=== PATIENT | female | born 1990 | race African-American/Black ===

== ENCOUNTER 2018-04-08 16:03 | Emergency (ER) | payer OTHER ==
[2018-04-08] MEDS ORDERED: Sodium Chloride 0.9% 2.5 ML Syringe FLUSH PRN (16:09)
[2018-04-08] MEDS ORDERED: Aspirin 81 MG Tab.Chew PO ONE (16:09)
[2018-04-08] MEDS ORDERED: Sodium Chloride 0.9% 10 ML Syringe FLUSH PRN (16:09)
--- NOTE | 2018-04-08 16:23 | EDM.PDOC ---
ED HPI GENERAL MEDICAL PROBLEM - General Chief Complaint: Chest Pain Stated Complaint: CHEST PAIN Time Seen by Provider: 04/08/18 16:19 Source of Information: Reports: Patient History Limitations: Reports: No Limitations - History of Present Illness INITIAL COMMENTS - FREE TEXT/NARRATIVE: HISTORY AND PHYSICAL: History of present illness: Patient is a 27 year old female here with complaint of chest pain. She states the chest pain started this morning and she came to the ED this afternoon because it is not getting better. The pain comes and goes and she rates it as a 6/10 when it occurs. She states certain movements make it worse. She denies any chest pain at this moment. She denies any associated shortness of breath, diaphoresis, nausea, palpitations, vomiting, diarrhea, abdominal pain, cough, fevers, chills. She is otherwise healthy and denies any significant past medical history. Denies any smoking, or elicit drug use. She states her mother has history of hypertension and congestive heart failure and father has history of hypertension and has had cardiac stents. LMP 03/30/18. Review of systems: As per history of present illness and below otherwise all systems reviewed and negative. Past medical history: As per history of present illness and as reviewed below otherwise noncontributory. Surgical history: As per history of present illness and as reviewed below otherwise noncontributory. Social history: No reported history of drug or alcohol abuse. Family history: As per history of present illness and as reviewed below otherwise noncontributory. Physical exam: General: Patient sitting comfortably in no acute distress and nontoxic appearing HEENT: Atraumatic, normocephalic, pupils reactive, negative for conjunctival pallor or scleral icterus, mucous membranes moist, throat clear, neck supple, nontender, trachea midline. No meningeal signs. Lungs: Clear to auscultation, breath sounds equal bilaterally, chest nontender. Heart: S1S2, regular, negative for clicks, rubs, or overt murmur. Abdomen: Soft, nondistended, nontender. Negative for masses or hepatosplenomegaly. Negative for costovertebral tenderness. Pelvis: Stable nontender. Genitourinary: Deferred. Rectal: Deferred. Extremities: Atraumatic, negative for cords or calf pain. Neurovascular unremarkable. Neuro: Awake, alert, oriented. Cranial nerves II through XII unremarkable. Cerebellum unremarkable. Motor and sensory unremarkable throughout. Exam nonfocal. Notes: Diagnostics: CBC, CMP, troponin, EKG, chest x-ray Therapeutics: Aspirin 324mg chewed Prescriptions: Impression: Chest pain, costochondritis Plan: 1. Motrin or tylenol as needed 2. Follow up with primary care provider 3. Return to ED as needed as discussed Definitive disposition and diagnosis as appropriate pending reevaluation and review of above. chest pain Pain Score (Numeric/FACES): 6 - Related Data Allergies Allergy/AdvReac Type Severity Reaction Status Date / Time No Known Allergies Allergy Verified 04/08/18 16:47 Home Meds: Home Meds . [No Known Home Meds] 04/08/18 [History] Multivitamin [One-Daily Multi-Vitamin] 1 each PO DAILY 04/08/18 [History] ED ROS GENERAL - Review of Systems Review Of Systems: ROS reveals no pertinent complaints other than HPI. ED EXAM, GENERAL - Physical Exam Exam: See Below (See dictation) Course - Vital Signs Last Recorded V/S: Last Vital Signs Temp 99.0 F 04/08/18 16:05 Pulse 71 04/08/18 16:05 Resp 18 04/08/18 16:05 BP 155/91 H 04/08/18 16:05 Pulse Ox 100 04/08/18 16:05 - Orders/Labs/Meds Orders: Active Orders 24 hr Category Date Time Status EKG 12 Lead [EKG Documentation Completion] [RC] STAT Care 04/08/18 16:50 Active Sodium Chloride 0.9% [Saline Flush] Med 04/08/18 16:09 Active 10 ml FLUSH ASDIRECTED PRN Sodium Chloride 0.9% [Saline Flush] Med 04/08/18 16:09 Active 2.5 ml FLUSH ASDIRECTED PRN Saline Lock Insert [OM.PC] Stat Oth 04/08/18 16:09 Ordered Medication Orders Sodium Chloride (Saline Flush) 10 ml FLUSH ASDIRECTED PRN PRN Reason: Keep Vein Open Sodium Chloride (Saline Flush) 2.5 ml FLUSH ASDIRECTED PRN PRN Reason: Keep Vein Open Labs: Laboratory Tests 04/08/18 04/08/18 Range/Units 16:13 16:13 WBC 6.23 (4.0-11.0) K/uL RBC 4.65 (4.30-5.90) M/uL Hgb 13.6 (12.0-16.0) g/dL Hct 38.9 (36.0-46.0) % MCV 83.7 (80.0-98.0) fL MCH 29.2 (27.0-32.0) pg MCHC 35.0 (31.0-37.0) g/dL RDW Std Deviation 40.2 (28.0-62.0) fl RDW Coeff of Lety 13 (11.0-15.0) % Plt Count 257 (150-400) K/uL MPV 10.90 (7.40-12.00) fL Neut % (Auto) 42.6 L (48.0-80.0) % Lymph % (Auto) 48.3 H (16.0-40.0) % [place] % (Auto) 7.7 (0.0-15.0) % Eos % (Auto) 0.8 (0.0-7.0) % Baso % (Auto) 0.6 (0.0-1.5) % Neut # (Auto) 2.7 (1.4-5.7) K/uL Lymph # (Auto) 3.0 H (0.6-2.4) K/uL [place] # (Auto) 0.5 (0.0-0.8) K/uL Eos # (Auto) 0.1 (0.0-0.7) K/uL Baso # (Auto) 0.0 (0.0-0.1) K/uL Nucleated RBC % 0.0 /100WBC Nucleated RBCs # 0 K/uL Sodium 140 (136-145) mmol/L Potassium 3.8 (3.5-5.1) mmol/L Chloride 103 (98-107) mmol/L Carbon Dioxide 27.4 (21.0-32.0) mmol/L BUN 13 (7.0-18.0) mg/dL Creatinine 0.9 (0.6-1.0) mg/dL Est Cr Clr Drug Dosing 71.48 mL/min Estimated GFR (MDRD) > 60.0 ml/min Glucose 87 (74-106) mg/dL Calcium 9.9 (8.5-10.1) mg/dL Total Bilirubin 0.6 (0.2-1.0) mg/dL AST 16 (15-37) IU/L ALT 16 (14-63) IU/L Alkaline Phosphatase 85 (46-116) U/L Troponin I < 0.050 (0.000-0.056) ng/mL Total Protein 8.6 H (6.4-8.2) g/dL Albumin 3.9 (3.4-5.0) g/dL Globulin 4.7 H (2.6-4.0) g/dL Albumin/Globulin Ratio 0.8 L (0.9-1.6) Meds: Medications Generic Name Dose Route Start Last Admin Trade Name Freq PRN Reason Stop Dose Admin Sodium Chloride 10 ml 04/08/18 16:09 Saline Flush FLUSH ASDIRECTED PRN Keep Vein Open Sodium Chloride 2.5 ml 04/08/18 16:09 Saline Flush FLUSH ASDIRECTED PRN Keep Vein Open Discontinued Medications Generic Name Dose Route Start Last Admin Trade Name Freq PRN Reason Stop Dose Admin Aspirin 324 mg 04/08/18 16:09 04/08/18 16:46 Aspirin PO 04/08/18 16:10 324 mg ONETIME ONE Administration Departure - Departure Time of Disposition: 17:10 Disposition: Home, Self-Care 01 Condition: Good Clinical Impression: Chest pain, Costochondritis Forms: ED Department Discharge Additional Instructions: The following information is given to patients seen in the emergency department who are being discharged to home. This information is to outline your options for follow-up care. We provide all patients seen in our emergency department with a follow-up referral. The need for follow-up, as well as the timing and circumstances, are variable depending upon the specifics of your emergency department visit. If you don't have a primary care physician on staff, we will provide you with a referral. We always advise you to contact your personal physician following an emergency department visit to inform them of the circumstance of the visit and for follow-up with them and/or the need for any referrals to a consulting specialist. The emergency department will also refer you to a specialist when appropriate. This referral assures that you have the opportunity for follow-up care with a specialist. All of these measure are taken in an effort to provide you with optimal care, which includes your follow-up. Under all circumstances we always encourage you to contact your private physician who remains a resource for coordinating your care. When calling for follow-up care, please make the office aware that this follow-up is from your recent emergency room visit. If for any reason you are refused follow-up, please contact the [facility] Emergency Department at and asked to speak to the emergency department charge nurse. 1. Motrin or tylenol as needed 2. Follow up with primary care provider 3. Return to ED as needed as discussed - My Orders Last 24 Hours: My Active Orders 04/08/18 16:09 Sodium Chloride 0.9% [Saline Flush] 10 ml FLUSH ASDIRECTED PRN Sodium Chloride 0.9% [Saline Flush] 2.5 ml FLUSH ASDIRECTED PRN Saline Lock Insert [OM.PC] Stat 04/08/18 16:50 EKG 12 Lead [EKG Documentation Completion] [RC] STAT - Assessment/Plan Last 24 Hours: My Active Orders 04/08/18 16:09 Sodium Chloride 0.9% [Saline Flush] 10 ml FLUSH ASDIRECTED PRN Sodium Chloride 0.9% [Saline Flush] 2.5 ml FLUSH ASDIRECTED PRN Saline Lock Insert [OM.PC] Stat 04/08/18 16:50 EKG 12 Lead [EKG Documentation Completion] [RC] STAT
[2018-04-08 16:51] LABS: CHLORIDE,CL 103 mmol/L (98-107); SODIUM,NA 140 mmol/L (136-145)
--- NOTE | 2018-04-08 16:58 | CR ---
CHEST 1 VIEW AP INDICATION: Chest pain. IMPRESSION: Normal heart size and vascular pattern. Lungs are clear. No pneumothorax or pleural abnormality. ECG Monitor leads projected over the patient. Dictated by Carlito Martínez MD @ Apr 08 2018 4:56PM Signed by Dr. Carlito Martínez @ Apr 08 2018 4:56PM
== END 2018-04-08 17:35 | disposition home or self-care (01) ==
LOC: MW.ED 16:03
DX: M94.0 Chondrocostal junction syndrome [Tietze] (principal); R07.9 Chest pain, unspecified
CPT/HCPCS: 71045; 80053; 84484; 85025; 93005; 99285; A9270

== ENCOUNTER 2019-01-07 09:24 | Emergency (ER) | payer OTHER ==
[2019-01-07] MEDS ORDERED: Sodium Chloride 0.9% 2.5 ML Syringe FLUSH PRN (09:41)
[2019-01-07] MEDS ORDERED: Ondansetron 4 MG/2 ML SDV IVPUSH ONE (09:41)
[2019-01-07] MEDS ORDERED: Sodium Chloride 0.9% 1,000 ML IV ONE (09:41)
[2019-01-07] MEDS ORDERED: Sodium Chloride 0.9% 10 ML Syringe FLUSH PRN (09:41)
--- NOTE | 2019-01-07 09:51 | EDM.PDOC ---
ED HPI GENERAL MEDICAL PROBLEM - General Chief Complaint: Gastrointestinal Problem Stated Complaint: VOMITING Time Seen by Provider: 01/07/19 09:38 Source of Information: Reports: Patient History Limitations: Reports: No Limitations - History of Present Illness INITIAL COMMENTS - FREE TEXT/NARRATIVE: History of present illness: []She started having vomiting and diarrhea at 3 AM this morning. She is unaware of any food exposures denies any fevers or chills states she's been having brown watery diarrhea almost every hour copious amounts. She has vomited just 2- 3 times nonbloody. She has mild abdominal pain from vomiting states he feels like she's done a lot of sit-ups. Review of systems: As per history of present illness and below otherwise all systems reviewed and negative. Past medical history: As per history of present illness and as reviewed below otherwise noncontributory. Surgical history: As per history of present illness and as reviewed below otherwise noncontributory. Social history: No reported history of drug or alcohol abuse. Family history: As per history of present illness and as reviewed below otherwise noncontributory. Physical exam: General: Well developed, well nourished in NAD HEENT: Atraumatic, normocephalic, pupils reactive, negative for conjunctival pallor or scleral icterus, mucous membranes moist, throat clear, neck supple, nontender, trachea midline. Lungs: Clear to auscultation, breath sounds equal bilaterally, chest nontender. Heart: S1S2, regular, negative for clicks, rubs, or JVD. Abdomen: NABS, Soft, nondistended, diffuse tenderness no rebound or guarding. Negative for masses or hepatosplenomegaly. Negative for costovertebral tenderness. Pelvis: Stable nontender. Genitourinary: Deferred. Rectal: Deferred. Extremities: Atraumatic, negative for cords or calf pain. Neurovascular unremarkable. Neuro: Awake, alert, oriented. Cranial nerves II through XII unremarkable. Cerebellum unremarkable. Motor and sensory unremarkable throughout. Exam nonfocal. Skin:warm and dry Diagnostics: CBC, chemistry, UA, hCG Therapeutics: IV hydration, Zofran ED Course: Stable Impression: Vomiting and diarrhea Prescriptions: Zofran Plan: Take meds as directed, follow up with your primary care physician, return to ER if symptoms worsen or change. Definitive disposition and diagnosis as appropriate pending reevaluation and review of above. abd Pain Score (Numeric/FACES): 3 - Related Data Allergies Allergy/AdvReac Type Severity Reaction Status Date / Time No Known Allergies Allergy Verified 01/07/19 09:42 Home Meds: Home Meds Multivitamin [One-Daily Multi-Vitamin] 1 each PO DAILY 04/08/18 [History] Cholecalciferol (Vitamin D3) [Vitamin D] 5,000 unit PO DAILY 01/07/19 [History] Ondansetron HCl [Zofran] 4 mg PO Q4HR #12 tablet 01/07/19 [Rx] Past Medical History - Past Health History Medical/Surgical History: Denies Medical/Surgical History - Infectious Disease History Infectious Disease History: Reports: None Social & Family History - Family History Family Medical History: Noncontributory - Tobacco Use Smoking Status *Q: Never Smoker - Recreational Drug Use Recreational Drug Use: No ED ROS GENERAL - Review of Systems Review Of Systems: See Below ED EXAM, GI/ABD - Physical Exam Exam: See Below Course - Vital Signs Last Recorded V/S: Last Vital Signs Temp 97.3 F 01/07/19 09:38 Pulse 106 H 01/07/19 09:38 Resp 16 01/07/19 09:38 BP 127/82 01/07/19 09:38 Pulse Ox 99 01/07/19 09:38 - Orders/Labs/Meds Orders: Active Orders 24 hr Category Date Time Status Sodium Chloride 0.9% [Saline Flush] Med 01/07/19 09:41 Active 10 ml FLUSH ASDIRECTED PRN Sodium Chloride 0.9% [Saline Flush] Med 01/07/19 09:41 Active 2.5 ml FLUSH ASDIRECTED PRN Saline Lock Insert [OM.PC] Stat Oth 01/07/19 09:41 Ordered Medication Orders Sodium Chloride (Saline Flush) 10 ml FLUSH ASDIRECTED PRN PRN Reason: Keep Vein Open Last Admin: 01/07/19 09:55 Dose: 10 ml Sodium Chloride (Saline Flush) 2.5 ml FLUSH ASDIRECTED PRN PRN Reason: Keep Vein Open Last Admin: 01/07/19 09:55 Dose: 2.5 ml Labs: Laboratory Tests 01/07/19 01/07/19 01/07/19 Range/Units 09:41 09:44 09:55 WBC 8.19 (4.0-11.0) K/uL RBC 4.92 (4.30-5.90) M/uL Hgb 14.5 (12.0-16.0) g/dL Hct 41.5 (36.0-46.0) % MCV 84.3 (80.0-98.0) fL MCH 29.5 (27.0-32.0) pg MCHC 34.9 (31.0-37.0) g/dL RDW Std Deviation 38.9 (28.0-62.0) fl RDW Coeff of Lety 13 (11.0-15.0) % Plt Count 243 (150-400) K/uL MPV 11.10 (7.40-12.00) fL Neut % (Auto) 84.9 H (48.0-80.0) % Lymph % (Auto) 9.3 L (16.0-40.0) % [place] % (Auto) 5.5 (0.0-15.0) % Eos % (Auto) 0.2 (0.0-7.0) % Baso % (Auto) 0.1 (0.0-1.5) % Neut # (Auto) 7.0 H (1.4-5.7) K/uL Lymph # (Auto) 0.8 (0.6-2.4) K/uL [place] # (Auto) 0.5 (0.0-0.8) K/uL Eos # (Auto) 0.0 (0.0-0.7) K/uL Baso # (Auto) 0.0 (0.0-0.1) K/uL Nucleated RBC % 0.0 /100WBC Nucleated RBCs # 0 K/uL Sodium (136-145) mmol/L Potassium (3.5-5.1) mmol/L Chloride (98-107) mmol/L Carbon Dioxide (21.0-32.0) mmol/L BUN (7.0-18.0) mg/dL Creatinine (0.6-1.0) mg/dL Est Cr Clr Drug Dosing mL/min Estimated GFR (MDRD) ml/min Glucose (74-106) mg/dL Calcium (8.5-10.1) mg/dL Total Bilirubin (0.2-1.0) mg/dL AST (15-37) IU/L ALT (14-63) IU/L Alkaline Phosphatase (46-116) U/L Total Protein (6.4-8.2) g/dL Albumin (3.4-5.0) g/dL Globulin (2.6-4.0) g/dL Albumin/Globulin Ratio (0.9-1.6) Urine Color YELLOW Urine Appearance CLEAR Urine pH 5.5 (5.0-8.0) Ur Specific [place] 1.020 (1.001-1.035) Urine Protein NEGATIVE (NEGATIVE) mg/dL Urine Glucose (UA) NEGATIVE (NEGATIVE) mg/dL Urine Ketones NEGATIVE (NEGATIVE) mg/dL Urine Occult Blood NEGATIVE (NEGATIVE) Urine Nitrite NEGATIVE (NEGATIVE) Urine Bilirubin NEGATIVE (NEGATIVE) Urine Urobilinogen 0.2 (<2.0) EU/dL Ur Leukocyte Esterase NEGATIVE (NEGATIVE) Urine RBC 0-1 (0-2/HPF) Urine WBC 0-2 (0-5/HPF) Ur Epithelial Cells FEW (NONE-FEW) Urine Bacteria FEW (NEGATIVE) Urine Mucus LIGHT (NONE-MOD) Urine HCG, Qual NEGATIVE (NEGATIVE) 01/07/19 Range/Units 09:55 WBC (4.0-11.0) K/uL RBC (4.30-5.90) M/uL Hgb (12.0-16.0) g/dL Hct (36.0-46.0) % MCV (80.0-98.0) fL MCH (27.0-32.0) pg MCHC (31.0-37.0) g/dL RDW Std Deviation (28.0-62.0) fl RDW Coeff of Lety (11.0-15.0) % Plt Count (150-400) K/uL MPV (7.40-12.00) fL Neut % (Auto) (48.0-80.0) % Lymph % (Auto) (16.0-40.0) % [place] % (Auto) (0.0-15.0) % Eos % (Auto) (0.0-7.0) % Baso % (Auto) (0.0-1.5) % Neut # (Auto) (1.4-5.7) K/uL Lymph # (Auto) (0.6-2.4) K/uL [place] # (Auto) (0.0-0.8) K/uL Eos # (Auto) (0.0-0.7) K/uL Baso # (Auto) (0.0-0.1) K/uL Nucleated RBC % /100WBC Nucleated RBCs # K/uL Sodium 140 (136-145) mmol/L Potassium 4.2 (3.5-5.1) mmol/L Chloride 104 (98-107) mmol/L Carbon Dioxide 27.0 (21.0-32.0) mmol/L BUN 13 (7.0-18.0) mg/dL Creatinine 1.0 (0.6-1.0) mg/dL Est Cr Clr Drug Dosing 63.77 mL/min Estimated GFR (MDRD) > 60.0 ml/min Glucose 106 (74-106) mg/dL Calcium 9.1 (8.5-10.1) mg/dL Total Bilirubin 0.7 (0.2-1.0) mg/dL AST 16 (15-37) IU/L ALT 20 (14-63) IU/L Alkaline Phosphatase 87 (46-116) U/L Total Protein 9.1 H (6.4-8.2) g/dL Albumin 4.2 (3.4-5.0) g/dL Globulin 4.9 H (2.6-4.0) g/dL Albumin/Globulin Ratio 0.9 (0.9-1.6) Urine Color Urine Appearance Urine pH (5.0-8.0) Ur Specific [place] (1.001-1.035) Urine Protein (NEGATIVE) mg/dL Urine Glucose (UA) (NEGATIVE) mg/dL Urine Ketones (NEGATIVE) mg/dL Urine Occult Blood (NEGATIVE) Urine Nitrite (NEGATIVE) Urine Bilirubin (NEGATIVE) Urine Urobilinogen (<2.0) EU/dL Ur Leukocyte Esterase (NEGATIVE) Urine RBC (0-2/HPF) Urine WBC (0-5/HPF) Ur Epithelial Cells (NONE-FEW) Urine Bacteria (NEGATIVE) Urine Mucus (NONE-MOD) Urine HCG, Qual (NEGATIVE) Meds: Medications Generic Name Dose Route Start Last Admin Trade Name Freq PRN Reason Stop Dose Admin Sodium Chloride 10 ml 01/07/19 09:41 01/07/19 09:55 Saline Flush FLUSH 10 ml ASDIRECTED PRN Administration Keep Vein Open Sodium Chloride 2.5 ml 01/07/19 09:41 01/07/19 09:55 Saline Flush FLUSH 2.5 ml ASDIRECTED PRN Administration Keep Vein Open Discontinued Medications Generic Name Dose Route Start Last Admin Trade Name Freq PRN Reason Stop Dose Admin Sodium Chloride 1,000 mls @ 999 mls/hr 01/07/19 09:41 01/07/19 09:55 Normal Saline IV 01/07/19 10:41 999 mls/hr .Bolus ONE Administration Ondansetron HCl 4 mg 01/07/19 09:41 01/07/19 09:55 Zofran IVPUSH 01/07/19 09:42 4 mg ONETIME ONE Administration Departure - Departure Time of Disposition: 10:42 Disposition: Home, Self-Care 01 Condition: Good Clinical Impression: Acute gastroenteritis - Discharge Information *PRESCRIPTION DRUG MONITORING PROGRAM REVIEWED*: Not Applicable *COPY OF PRESCRIPTION DRUG MONITORING REPORT IN PATIENT ELIAS: Not Applicable Prescriptions: Ondansetron HCl [Zofran] 4 mg PO Q4HR #12 tablet Instructions: Viral Gastroenteritis, Adult, [id number] Referrals: Dl Caballero MD [Primary Care Provider] - Forms: ED Department Discharge Additional Instructions: `The following information is given to patients seen in the emergency department who are being discharged to home. This information is to outline your options for follow-up care. We provide all patients seen in our emergency department with a follow-up referral. The need for follow-up, as well as the timing and circumstances, are variable depending upon the specifics of your emergency department visit. If you don't have a primary care physician on staff, we will provide you with a referral. We always advise you to contact your personal physician following an emergency department visit to inform them of the circumstance of the visit and for follow-up with them and/or the need for any referrals to a consulting specialist. The emergency department will also refer you to a specialist when appropriate. This referral assures that you have the opportunity for follow-up care with a specialist. All of these measure are taken in an effort to provide you with optimal care, which includes your follow-up. Under all circumstances we always encourage you to contact your private physician who remains a resource for coordinating your care. When calling for follow-up care, please make the office aware that this follow-up is from your recent emergency room visit. If for any reason you are refused follow-up, please contact the [facility] Emergency Department at and asked to speak to the emergency department charge nurse. Take meds as directed, follow up with your primary care physician, return to ER if symptoms worsen or change. [facility] [address] [place] [id number] - My Orders Last 24 Hours: My Active Orders 01/07/19 09:41 Sodium Chloride 0.9% [Saline Flush] 10 ml FLUSH ASDIRECTED PRN Sodium Chloride 0.9% [Saline Flush] 2.5 ml FLUSH ASDIRECTED PRN Saline Lock Insert [OM.PC] Stat - Assessment/Plan Last 24 Hours: My Active Orders 01/07/19 09:41 Sodium Chloride 0.9% [Saline Flush] 10 ml FLUSH ASDIRECTED PRN Sodium Chloride 0.9% [Saline Flush] 2.5 ml FLUSH ASDIRECTED PRN Saline Lock Insert [OM.PC] Stat
[2019-01-07 10:28] LABS: BLOOD UREA NITROGEN,BUN 13 mg/dL (7.0-18.0); CHLORIDE,CL 104 mmol/L (98-107); GLUCOSE RANDOM 106 mg/dL (74-106); POTASSIUM,K 4.2 mmol/L (3.5-5.1); SODIUM,NA 140 mmol/L (136-145)
== END 2019-01-07 11:04 | disposition home or self-care (01) ==
LOC: MW.ED 09:24
DX: K52.9 Noninfective gastroenteritis and colitis, unspecified (principal)
CPT/HCPCS: 36415; 80053; 81001; 81025; 85025; 96361; 96374; 99284; J2405; J7040

== ENCOUNTER 2019-07-26 20:04 | Emergency (ER) | payer OTHER ==
--- NOTE | 2019-07-26 20:27 | EDM.PDOC ---
ED HPI GENERAL MEDICAL PROBLEM - General Chief Complaint: General Stated Complaint: DIZZINESS,HEADACHES Time Seen by Provider: 07/26/19 20:16 - History of Present Illness INITIAL COMMENTS - FREE TEXT/NARRATIVE: The patient's chief complaint is dizziness. She has a history of vertigo with diaphoresis and things spinning. This is not the same. It happened this afternoon while she was going through normal activities. She is 14 weeks with a first . She is on iron replacement for anemia. The patient describes her dizziness is kind of a weird feeling that comes and goes and it feels like she is a little bit off balance. Describe any nausea vomiting diaphoresis. She has no focal neurologic deficit. History of present illness: [] Review of systems: As per history of present illness and below otherwise all systems reviewed and negative. Past medical history: As per history of present illness and as reviewed below otherwise noncontributory. Surgical history: As per history of present illness and as reviewed below otherwise noncontributory. Social history: No reported history of drug or alcohol abuse. Family history: As per history of present illness and as reviewed below otherwise noncontributory. Physical exam: HEENT: Atraumatic, normocephalic, pupils reactive, negative for conjunctival pallor or scleral icterus, mucous membranes moist, throat clear, neck supple, nontender, trachea midline. Lungs: Clear to auscultation, breath sounds equal bilaterally, chest nontender. Heart: S1S2, regular, negative for clicks, rubs, or JVD. Abdomen: Soft, nondistended, nontender. Negative for masses or hepatosplenomegaly. Negative for costovertebral tenderness. Pelvis: Stable nontender. Genitourinary: Deferred. Rectal: Deferred. Extremities: Atraumatic, negative for cords or calf pain. Neurovascular unremarkable. Neuro: Awake, alert, oriented. Cranial nerves II through XII unremarkable. Cerebellum unremarkable. Motor and sensory unremarkable throughout. Exam nonfocal. Fundus is palpable and can consistent with 14 weeks size. heart tones are 172. Plan to hydrate the mother and recheck. Diagnostics: [] Therapeutics: [] Impression: [] Plan: [] Definitive disposition and diagnosis as appropriate pending reevaluation and review of above. - Related Data Allergies Allergy/AdvReac Type Severity Reaction Status Date / Time No Known Allergies Allergy Verified 05/28/20 20:11 Home Meds: Home Meds Multivitamin [One-Daily Multi-Vitamin] 1 each PO DAILY 04/08/18 [History] Cholecalciferol (Vitamin D3) [Vitamin D] 5,000 unit PO DAILY 01/07/19 [History] ondansetron HCL [Zofran] 4 mg PO Q4HR #12 tablet 01/07/19 [Rx] Iron 300 mg PO DAILY 07/26/19 [History] Past Medical History - Past Health History Medical/Surgical History: Denies Medical/Surgical History HEENT History: Reports: None Cardiovascular History: Reports: High Cholesterol Respiratory History: Reports: None Gastrointestinal History: Reports: None Genitourinary History: Reports: None CARE PROFESSIONAL History: Reports: Musculoskeletal History: Reports: None Neurological History: Reports: Vertigo Psychiatric History: Reports: None Endocrine/Metabolic History: Reports: None Hematologic History: Reports: None Immunologic History: Reports: None Oncologic (Cancer) History: Reports: None Dermatologic History: Reports: None - Infectious Disease History Infectious Disease History: Reports: None - Past Surgical History Head Surgeries/Procedures: Reports: None HEENT Surgical History: Reports: None Cardiovascular Surgical History: Reports: None Respiratory Surgical History: Reports: None GI Surgical History: Reports: None Female Surgical History: Reports: None Endocrine Surgical History: Reports: None Neurological Surgical History: Reports: None Musculoskeletal Surgical History: Reports: None Oncologic Surgical History: Reports: None Dermatological Surgical History: Reports: None Social & Family History - Family History Family Medical History: Noncontributory - Tobacco Use Smoking Status *Q: Never Smoker Second Hand Smoke Exposure: No - Caffeine Use Caffeine Use: Reports: None - Recreational Drug Use Recreational Drug Use: No ED ROS GENERAL - Review of Systems Review Of Systems: See Below ED EXAM, GENERAL - Physical Exam Exam: See Below Course - Vital Signs Last Recorded V/S: Last Vital Signs Temp 97.0 F 07/26/19 20:12 Pulse 91 07/26/19 21:39 Resp 17 07/26/19 21:39 BP 116/62 07/26/19 21:39 Pulse Ox 100 07/26/19 21:39 - Orders/Labs/Meds Orders: Active Orders 24 hr Category Date Time Status Communication Order [RC] STAT Care 07/26/19 20:24 Active EKG Documentation Completion [RC] STAT Care 07/26/19 20:23 Active Labs: Laboratory Tests 07/26/19 07/26/19 07/26/19 Range/Units 20:25 20:38 20:38 WBC 9.20 (4.0-11.0) K/uL RBC 3.60 L (4.30-5.90) M/uL Hgb 10.6 L (12.0-16.0) g/dL Hct 30.3 L (36.0-46.0) % MCV 84.2 (80.0-98.0) fL MCH 29.4 (27.0-32.0) pg MCHC 35.0 (31.0-37.0) g/dL RDW Std Deviation 40.5 (28.0-62.0) fl RDW Coeff of Lety 13 (11.0-15.0) % Plt Count 252 (150-400) K/uL MPV 11.10 (7.40-12.00) fL Neut % (Auto) 59.9 (48.0-80.0) % Lymph % (Auto) 30.7 (16.0-40.0) % Lyman % (Auto) 8.2 (0.0-15.0) % Eos % (Auto) 0.9 (0.0-7.0) % Baso % (Auto) 0.3 (0.0-1.5) % Neut # (Auto) 5.5 (1.4-5.7) K/uL Lymph # (Auto) 2.8 H (0.6-2.4) K/uL Lyman # (Auto) 0.8 (0.0-0.8) K/uL Eos # (Auto) 0.1 (0.0-0.7) K/uL Baso # (Auto) 0.0 (0.0-0.1) K/uL Nucleated RBC % 0.0 /100WBC Nucleated RBCs # 0 K/uL Sodium 136 (136-145) mmol/L Potassium 4.0 (3.5-5.1) mmol/L Chloride 101 (98-107) mmol/L Carbon Dioxide 26.4 (21.0-32.0) mmol/L BUN 7 (7.0-18.0) mg/dL Creatinine 0.8 (0.6-1.0) mg/dL Est Cr Clr Drug Dosing 79.71 mL/min Estimated GFR (MDRD) > 60.0 ml/min Glucose 77 (74-106) mg/dL Calcium 9.6 (8.5-10.1) mg/dL Total Bilirubin 0.2 (0.2-1.0) mg/dL AST 14 L (15-37) IU/L ALT 14 (14-63) IU/L Alkaline Phosphatase 61 (46-116) U/L Total Protein 7.8 (6.4-8.2) g/dL Albumin 3.3 L (3.4-5.0) g/dL Globulin 4.5 H (2.6-4.0) g/dL Albumin/Globulin Ratio 0.7 L (0.9-1.6) Urine Color YELLOW Urine Appearance CLEAR Urine pH 7.0 (5.0-8.0) Ur Specific [place] <= 1.005 (1.001-1.035) Urine Protein NEGATIVE (NEGATIVE) mg/dL Urine Glucose (UA) NEGATIVE (NEGATIVE) mg/dL Urine Ketones NEGATIVE (NEGATIVE) mg/dL Urine Occult Blood NEGATIVE (NEGATIVE) Urine Nitrite NEGATIVE (NEGATIVE) Urine Bilirubin NEGATIVE (NEGATIVE) Urine Urobilinogen 0.2 (<2.0) EU/dL Ur Leukocyte Esterase NEGATIVE (NEGATIVE) Meds: Medications Discontinued Medications Generic Name Dose Route Start Last Admin Trade Name Carlq PRN Reason Stop Dose Admin Sodium Chloride 1,000 mls @ 1,000 mls/hr 07/26/19 20:46 07/26/19 20:49 Normal Saline IV 07/26/19 21:45 1,000 mls/hr .Bolus ONE Administration - Re-Assessments/Exams Free Text/Narrative Re-Assessment/Exam: 07/26/19 20:28 EKG normal sinus rhythm heart rate 80 axis 75 QRS appears normal. Interpretation normal EKG 07/26/19 21:32 After initial fluids the heart tones were 159. The patient felt better. The patient's heart rate was 76 bpm She said 1 her hemoglobin had been 10.6 at her last visit. Find out with her medical record on her phone. Departure - Departure Time of Disposition: 21:33 Disposition: Home, Self-Care 01 Condition: Good Clinical Impression: Dehydration, Anemia affecting first - Discharge Information Instructions: Dehydration, Adult, [id number] Referrals: [facility] [Primary Care Provider] - Forms: ED Department Discharge Additional Instructions: The following information is given to patients seen in the emergency department who are being discharged to home. This information is to outline your options for follow-up care. We provide all patients seen in our emergency department with a follow-up referral. The need for follow-up, as well as the timing and circumstances, are variable depending upon the specifics of your emergency department visit. If you don't have a primary care physician on staff, we will provide you with a referral. We always advise you to contact your personal physician following an emergency department visit to inform them of the circumstance of the visit and for follow-up with them and/or the need for any referrals to a consulting specialist. The emergency department will also refer you to a specialist when appropriate. This referral assures that you have the opportunity for follow-up care with a specialist. All of these measure are taken in an effort to provide you with optimal care, which includes your follow-up. Under all circumstances we always encourage you to contact your private physician who remains a resource for coordinating your care. When calling for follow-up care, please make the office aware that this follow-up is from your recent emergency room visit. If for any reason you are refused follow-up, please contact the [facility] Emergency Department at and asked to speak to the emergency department charge nurse. Sepsis Event Note - Evaluation Sepsis Screening Result: No Definite Risk - Focused Exam Vital Signs: Vital Signs Temp Pulse Resp BP Pulse Ox 07/26/19 21:39 91 17 116/62 100 07/26/19 21:32 76 07/26/19 20:12 97.0 F 91 18 138/84 100 Date Exam was Performed: 07/27/19 Time Exam was Performed: 02:24 - My Orders Last 24 Hours: My Active Orders 07/26/19 20:23 EKG Documentation Completion [RC] STAT 07/26/19 20:24 Communication Order [RC] STAT - Assessment/Plan Last 24 Hours: My Active Orders 07/26/19 20:23 EKG Documentation Completion [RC] STAT 07/26/19 20:24 Communication Order [RC] STAT
[2019-07-26] MEDS ORDERED: Sodium Chloride 0.9% 1,000 ML IV ONE (20:46)
[2019-07-26 21:06] LABS: BLOOD UREA NITROGEN,BUN 7 mg/dL (7.0-18.0); CARBON DIOXIDE,CO2 26.4 mmol/L (21.0-32.0); CHLORIDE,CL 101 mmol/L (98-107); GLUCOSE RANDOM 77 mg/dL (74-106); SODIUM,NA 136 mmol/L (136-145)
== END 2019-07-26 21:39 | disposition home or self-care (01) ==
LOC: MW.ED 20:04
DX: O99.011 Anemia complicating pregnancy, first trimester (principal); O99.281 Endocrine, nutritional and metabolic diseases complicating pregnancy, first trimester; E78.00 Pure hypercholesterolemia, unspecified; E86.0 Dehydration; Z3A.14 14 weeks gestation of pregnancy; Z79.899 Other long term (current) drug therapy
CPT/HCPCS: 36415; 80053; 81003; 85025; 96360; 99284; J7030; 93005; 99282

== ENCOUNTER 2019-10-09 17:49 | Emergency (ER) | payer SELFPAY ==
--- NOTE | 2019-10-09 19:26 | EDM.PDOC ---
ED HPI GENERAL MEDICAL PROBLEM - General Chief Complaint: General Stated Complaint: FEELING DEHYDRATED Time Seen by Provider: 10/09/19 19:14 - History of Present Illness INITIAL COMMENTS - FREE TEXT/NARRATIVE: HISTORY AND PHYSICAL: History of present illness: This is a 28-year-old 1 para 0 who is 24 weeks gestation presents ER today secondary to feeling like her mouth is dry and pasty like she has a bunch of Doritos. Patient reports that she is concerned that she might be dehydrated. Patient denies any other symptomatology. Patient has any recent fevers, shakes, chills, nausea, vomiting, diarrhea, dysuria, frequency, urgency, polyuria, abdominal pain, chest pain, shortness of breath, vaginal bleeding, vaginal cramping. Patient reports that she had an ultrasound which reported a normal gestation. Patient reports that she is tolerating p.o. solids and liquids well without any difficulty. She reports that she has not done anything out of the ordinary. Patient reports that she takes daily walks outdoors and that is all she is done and did not feel overexerted. Patient reports that she has been able to drink while sitting here in the ED without any difficulty. Review of systems: As per history of present illness and below otherwise all systems reviewed and negative. Past medical history: As per history of present illness and as reviewed below otherwise noncontributory. Surgical history: As per history of present illness and as reviewed below otherwise noncontributory. Social history: No reported history of drug or alcohol abuse. Family history: As per history of present illness and as reviewed below otherwise noncontributory. Physical exam: Constitutional: Patient is oriented to person, place, and time. Appears well- developed and well-nourished. No distress. HEENT: Moist mucous membranes Head: Normocephalic and atraumatic Eyes: Right eye exhibits no discharge. Left eye exhibits no discharge. No scleral icterus Neck: Normal range of motion. No tracheal deviation present. Cardiovascular: Normal rate and regular rhythm. Pulmonary: Effort normal, no respiratory distress. Abdominal: Soft, nondistended no rebound or guarding gravid palpable above the umbilicus. Normoactive bowel sounds. Musculoskeletal: Normal range of motion Neurologic: Alert and oriented to person, place and time. Skin: [place], warm and dry. Normal skin turgor Psychiatric: Normal mood and affect. Behavior is normal. Judgment and thought content normal. Nursing note and vital signs have been reviewed Diagnostics: Urinalysis normal Blood glucose level: Assessment and plan: This is a 28-year-old female who is 1 para 0 who presents the ER today with a sensation of being dehydrated. Patient reports that she has had no difficulty tolerating p.o. solids and liquids at home. Patient is able tolerate liquids here in the ED well. Patient clinically does not appear to be dehydrated. Patient has moist mucous membranes, normal skin turgor, axillary sweat. Patient's urinalysis is within normal limits. Patient's blood sugar is within normal limits. Patient was given the option for an IV and hydration but feels reassured that she does not needed at this time. Patient has been instructed to continue to increase p.o. intake of liquids and return to the ER she has any difficulty with keeping down solids or liquids. Reassessment at the time of disposition demonstrates that the patient is in no acute distress. The patient has remained stable throughout the entire ED visit and is without objective evidence for acute process requiring urgent intervention or hospitalization. The patient is stable for discharge, counseling is provided as documented above, discussed symptomatic treatment and specific conditions for return. I have spoken with the patient/caregive and discussed todays findings, in addition to providing specific details for the plan of care. Questions are answered and there is agreement with the plan. - Related Data Allergies Allergy/AdvReac Type Severity Reaction Status Date / Time No Known Allergies Allergy Verified 10/09/19 19:06 Home Meds: Home Meds Multivitamin [One-Daily Multi-Vitamin] 1 each PO DAILY 04/08/18 [History] Cholecalciferol (Vitamin D3) [Vitamin D] 5,000 unit PO DAILY 01/07/19 [History] ondansetron HCL [Zofran] 4 mg PO Q4HR #12 tablet 01/07/19 [Rx] Iron 300 mg PO DAILY 07/26/19 [History] Calcium Carbonate [Calcium] 500 mg PO 10/09/19 [History] Magnesium 30 mg PO 10/09/19 [History] Past Medical History - Past Health History Medical/Surgical History: Denies Medical/Surgical History HEENT History: Reports: None Cardiovascular History: Reports: High Cholesterol Respiratory History: Reports: None Gastrointestinal History: Reports: None Genitourinary History: Reports: None SANIPRACTIC PHYSICIAN History: Reports: Musculoskeletal History: Reports: None Neurological History: Reports: Vertigo Psychiatric History: Reports: None Endocrine/Metabolic History: Reports: None Hematologic History: Reports: None Immunologic History: Reports: None Oncologic (Cancer) History: Reports: None Dermatologic History: Reports: None - Infectious Disease History Infectious Disease History: Reports: None - Past Surgical History Head Surgeries/Procedures: Reports: None HEENT Surgical History: Reports: None Cardiovascular Surgical History: Reports: None Respiratory Surgical History: Reports: None GI Surgical History: Reports: None Female Surgical History: Reports: None Endocrine Surgical History: Reports: None Neurological Surgical History: Reports: None Musculoskeletal Surgical History: Reports: None Oncologic Surgical History: Reports: None Dermatological Surgical History: Reports: None Social & Family History - Family History Family Medical History: Noncontributory - Tobacco Use Smoking Status *Q: Unknown Ever Smoked - Caffeine Use Caffeine Use: Reports: None ED ROS GENERAL - Review of Systems Review Of Systems: Comprehensive ROS is negative, except as noted in HPI. ED EXAM, GENERAL - Physical Exam Exam: See Below Course - Vital Signs Last Recorded V/S: Last Vital Signs Temp 98.6 F 10/09/19 19:02 Pulse 76 10/09/19 19:02 Resp 16 10/09/19 19:02 BP 116/72 10/09/19 19:02 Pulse Ox 100 10/09/19 19:02 - Orders/Labs/Meds Orders: Active Orders 24 hr Category Date Time Status Blood Glucose Check, Bedside [RC] ONETIME Care 10/09/19 19:20 Active Labs: Laboratory Tests 10/09/19 10/09/19 Range/Units 18:17 18:17 Urine Color YELLOW Urine Appearance CLEAR Urine pH 7.0 (5.0-8.0) Ur Specific [place] [address] <= 1.005 (1.001-1.035) Urine Protein NEGATIVE (NEGATIVE) mg/dL Urine Glucose (UA) NEGATIVE (NEGATIVE) mg/dL Urine Ketones NEGATIVE (NEGATIVE) mg/dL Urine Occult Blood NEGATIVE (NEGATIVE) Urine Nitrite NEGATIVE (NEGATIVE) Urine Bilirubin NEGATIVE (NEGATIVE) Urine Urobilinogen 0.2 (<2.0) EU/dL Ur Leukocyte Esterase NEGATIVE (NEGATIVE) Urine HCG, Qual POSITIVE (NEGATIVE) Departure - Departure Time of Disposition: 19:25 Disposition: Home, Self-Care 01 Clinical Impression: related conditions, unspecified, second trimester, Dehydration, mild - Discharge Information Instructions: Dehydration, Adult, [id number], Exercise During Referrals: PCP,None [Primary Care Provider] - Additional Instructions: You were seen and evaluated in the ER today for concerns of dehydration during . Your vital signs and exam show that you are well hydrated at this time. Continue drinking plenty of liquids. Get plenty of rest. Return to the ER if you have any new concerns. The following information is given to patients seen in the emergency department who are being discharged to home. This information is to outline your options for follow-up care. We provide all patients seen in our emergency department with a follow-up referral. The need for follow-up, as well as the timing and circumstances, are variable depending upon the specifics of your emergency department visit. If you don't have a primary care physician on staff, we will provide you with a referral. We always advise you to contact your personal physician following an emergency department visit to inform them of the circumstance of the visit and for follow-up with them and/or the need for any referrals to a consulting specialist. The emergency department will also refer you to a specialist when appropriate. This referral assures that you have the opportunity for follow-up care with a specialist. All of these measure are taken in an effort to provide you with optimal care, which includes your follow-up. Under all circumstances we always encourage you to contact your private physician who remains a resource for coordinating your care. When calling for follow-up care, please make the office aware that this follow-up is from your recent emergency room visit. If for any reason you are refused follow-up, please contact the [facility] Emergency Department at and asked to speak to the emergency department charge nurse. Sepsis Event Note (ED) - Evaluation Sepsis Screening Result: No Definite Risk - Focused Exam Vital Signs: Vital Signs Temp Pulse Resp BP Pulse Ox 10/09/19 19:02 98.6 F 76 16 116/72 100 - My Orders Last 24 Hours: My Active Orders 10/09/19 19:20 Blood Glucose Check, Bedside [RC] ONETIME - Assessment/Plan Last 24 Hours: My Active Orders 10/09/19 19:20 Blood Glucose Check, Bedside [RC] ONETIME
== END 2019-10-09 19:45 | disposition home or self-care (01) ==
LOC: MW.ED 17:49
DX: O99.282 Endocrine, nutritional and metabolic diseases complicating pregnancy, second trimester (principal); E86.0 Dehydration; Z3A.24 24 weeks gestation of pregnancy
CPT/HCPCS: 81003; 81025; 82962; 99284

== ENCOUNTER 2019-12-29 21:58 | Inpatient (IN) | payer OTHER ==
[2019-12-29 23:10] LABS: CARBON DIOXIDE,CO2 23.8 mmol/L (21.0-32.0)
[2019-12-30] MEDS: Lactated Ringers 1,000 ML IV ONE ×2 (01:20→02:30)
--- NOTE | 2019-12-30 01:30 | US ---
INDICATION: Decreased movement, hypertension TECHNIQUE: Ultrasound OB pelvis transabdominal. Real-time polo-scale imaging of the fetus was performed with color Doppler. COMPARISON: December 19, 2019 FINDINGS: Sonographic imaging demonstrates a single living intrauterine gestation. Fetus demonstrates a regular cardiac rate of 153 beats per minute. Fetus has a vertex orientation. The placenta lies anterior. Amniotic fluid volume appears normal with an LANDEN of 9.5 cm. Single deepest pocket is 2.9 cm. No breathing. motion and tone were observed. IMPRESSION: Single viable intrauterine with a biophysical profile 08/05. Dictated by Leigh Ann Lennon MD @ Dec 30 2019 1:24AM Signed by Dr. Leigh Ann Lennon @ Dec 30 2019 1:28AM
[2019-12-30] MEDS ORDERED: Sodium Chloride 0.9% 10 ML Syringe FLUSH PRN (01:45)
[2019-12-30] MEDS ORDERED: Sodium Chloride 0.9% 10 ML SDV IV PRN (01:45)
[2019-12-30] MEDS ORDERED: Sodium Chloride 0.9% 2.5 ML Syringe FLUSH PRN (01:45)
[2019-12-30] MEDS: Lactated Ringers 1,000 ML IV SCH ×2 (07:15→09:00)
[2019-12-30] MEDS ORDERED: Citric Acid/Sodium Citrate Solution 30 ML Cup PO ONE (08:05)
[2019-12-30] MEDS ORDERED: ceFAZolin 1 GM in Premix Bag 1 BAG IV ONE (08:05)
[2019-12-30] MEDS ORDERED: Oxytocin/0.9 % Sodium Chloride 30 UNIT/500 ML BAG IV SCH (08:15)
[2019-12-30] MEDS ORDERED: Morphine PF 10 MG/10 ML SDV ONE (08:22)
[2019-12-30] MEDS ORDERED: Oxytocin 10 Units/1 ML SDV ONE (08:39)
[2019-12-30] MEDS ORDERED: Sodium Chloride 0.9% 20 ML ONE (08:39)
[2019-12-30] MEDS ORDERED: Ketorolac 30 MG/ML SDV ONE (08:39)
[2019-12-30] MEDS ORDERED: Ondansetron 4 MG/2 ML SDV ONE (08:39)
[2019-12-30] MEDS ORDERED: ceFAZolin 1 GM Vial ONE (08:39)
[2019-12-30] MEDS ORDERED: Phenylephrine 1% 10 MG/ML SDV ONE (08:39)
[2019-12-30] MEDS ORDERED: Octyl 2-Cyanoacrylate 1 Tube ONE ×2 (08:42→09:55)
--- NOTE | 2019-12-30 09:05 | HP ---
DATE OF : 1990 PRIMARY CARE PHYSICIAN: None PCP CHIEF COMPLAINT: Elevated blood pressures. HISTORY: This is a 29-year-old female. She is G1, P0. She is currently at 36 2/7 weeks' gestation. She called on 12/28 with complaint of elevated blood pressures at home. She was told to present to Labor and Delivery. Blood pressures on Labor and Delivery were normal and preeclamptic labs were negative, however, NST was nonreactive and therefore, biophysical profile was performed, had normal amniotic fluid index, but no breathing for a total score of 6/10. She was kept through the night to monitor the fetus and with very mild occasional contractions, she had a deceleration with each. She continued to have a nonreactive NST, although there were accelerations of 10 beats per minute. She has known IUGR with abdominal circumference less than the 3rd percentile. It is symmetric IUGR. Overall weight at the 16th percentile. She has been followed with Maternal Medicine and has been seen for renal pyelectasis as well as intrauterine growth restriction. She has been followed with umbilical artery Dopplers as well as serial growth ultrasounds. The umbilical artery Dopplers have been normal. She did receive steroids 3 days ago anticipating 36- to 37-week delivery. Given the recurrent and very consistent late decelerations without labor with just the occasional contractions, I have offered her an attempt at induction of labor anticipating the baby to be intolerant to labor versus proceeding with a primary and she desires to proceed with a primary low transverse delivery with risks discussed including bleeding; infection; injury to bowel, bladder, blood vessels, ureters, or other organs; risk of thromboembolic event; and risk of anesthesia. Understanding all these risks, she does desire to proceed. Her blood type is B positive. She is rubella immune. RPR negative. Hepatitis B negative. COVID negative. PAST MEDICAL HISTORY: She has no chronic medical issues. ALLERGIES: She has no known drug allergies. SOCIAL HISTORY: She is , sexually active. Denies use of tobacco, alcohol, or street drugs. FAMILY HISTORY: Significant for hypertension, hypercholesterolemia, coronary artery disease, prostate cancer, type 2 diabetes, hypertension, and stroke. REVIEW OF SYSTEMS: CONSTITUTIONAL: Negative for headache, visual changes, shortness of breath, chest pain, dyspnea on exertion, palpitations, nausea, vomiting, diarrhea, constipation. DERMATOLOGIC: Negative. RHEUMATOLOGY: Negative. NEUROLOGY: Negative . PHYSICAL EXAMINATION: VITAL SIGNS: Blood pressure 132/73, pulse is 93. heart tones are 150s with episodes of minimal variability, episodes of moderate variability with late decelerations related to contractions. Accelerations up to 10 beats per minute over a greater than 12-hour time period. There were approximately 4 of these. GENERAL: She is alert and oriented, in no acute distress. NECK: Supple without lymphadenopathy or thyromegaly. LUNGS: Clear bilaterally. CV: Regular rate without murmur. ABDOMEN: Soft, gravid, small for gestational age. EXTREMITIES: Trace edema. ASSESSMENT AND PLAN: 1. 36 weeks' gestation with nonreassuring testing, offered induction of labor versus proceeding with primary delivery with a concern about labor causing distress resulting in an emergent C- section versus the risk of including bleeding; infection; injury to bowel, bladder, blood vessels, ureters, or other organs; risk of thromboembolic event; and risk of anesthesia. After discussing the risk and benefits of each, the patient desires to proceed with a primary low transverse section. 2. renal pyelectasis, mild and not requiring followup, however, [place] screen was negative or normal. KRYSTEN / ANJU /[id number] GENIE
[2019-12-30] MEDS ORDERED: Nalbuphine 10 MG/1 ML Vial IVPUSH PRN (09:07)
[2019-12-30] MEDS ORDERED: fentaNYL 100 MCG/2 ML SDV IVPUSH PRN (09:07)
[2019-12-30] MEDS ORDERED: Acetaminophen/oxyCODONE 325-5 MG Tab PO PRN ×2 (09:07→11:10)
--- NOTE | 2019-12-30 09:07 | PCM.PREANE ---
Preanesthetic Assessment - Anesthesia/Transfusion/Family Hx Anesthesia History: No Prior Anesthesia Family History of Anesthesia Reaction: No Transfusion History: No Prior Transfusion(s) - Review of Systems General: No Symptoms Pulmonary: No Symptoms Cardiovascular: No Symptoms Gastrointestinal: No Symptoms Neurological: No Symptoms Other: Reports: None - Physical Assessment NPO Status Date: 12/29/19 Height: 5 ft 1 in Weight: 71.214 kg ASA Class: 2 Mental Status: Alert & Oriented x3 Airway Class: Mallampati = 2 Dentition: Reports: Normal Dentition ROM/Head Extension: Full Lungs: Clear to Auscultation, Normal Respiratory Effort Cardiovascular: Regular Rate, Regular Rhythm - Lab Values: Laboratory Last Values WBC 15.66 K/uL (4.0-11.0) H 12/29/19 22:38 RBC 3.53 M/uL (4.30-5.90) L 12/29/19 22:38 Hgb 10.3 g/dL (12.0-16.0) L 12/29/19 22:38 Hct 30.3 % (36.0-46.0) L 12/29/19 22:38 MCV 85.8 fL (80.0-98.0) 12/29/19 22:38 MCH 29.2 pg (27.0-32.0) 12/29/19 22:38 MCHC 34.0 g/dL (31.0-37.0) 12/29/19 22:38 RDW Std Deviation 43.6 fl (28.0-62.0) 12/29/19 22:38 RDW Coeff of Lety 14 % (11.0-15.0) 12/29/19 22:38 Plt Count 222 K/uL (150-400) 12/29/19 22:38 MPV 11.70 fL (7.40-12.00) 12/29/19 22:38 Neut % (Auto) 85.8 % (48.0-80.0) H 12/29/19 22:38 Lymph % (Auto) 9.5 % (16.0-40.0) L 12/29/19 22:38 Humphreys % (Auto) 4.6 % (0.0-15.0) 12/29/19 22:38 Eos % (Auto) 0.0 % (0.0-7.0) 12/29/19 22:38 Baso % (Auto) 0.1 % (0.0-1.5) 12/29/19 22:38 Neut # (Auto) 13.4 K/uL (1.4-5.7) H 12/29/19 22:38 Lymph # (Auto) 1.5 K/uL (0.6-2.4) 12/29/19 22:38 Humphreys # (Auto) 0.7 K/uL (0.0-0.8) 12/29/19 22:38 Eos # (Auto) 0.0 K/uL (0.0-0.7) 12/29/19 22:38 Baso # (Auto) 0.0 K/uL (0.0-0.1) 12/29/19 22:38 Nucleated RBC % 0.0 /100WBC 12/29/19 22:38 Nucleated RBCs # 0 K/uL 12/29/19 22:38 Sodium 133 mmol/L (136-145) L 12/29/19 22:38 Potassium 4.0 mmol/L (3.5-5.1) 12/29/19 22:38 Chloride 99 mmol/L (98-107) 12/29/19 22:38 Carbon Dioxide 23.8 mmol/L (21.0-32.0) 12/29/19 22:38 BUN 20 mg/dL (7.0-18.0) H 12/29/19 22:38 Creatinine 1.1 mg/dL (0.6-1.0) H 12/29/19 22:38 Est Cr Clr Drug Dosing 57.46 mL/min 12/29/19 22:38 Estimated GFR (MDRD) 59.1 ml/min 12/29/19 22:38 Glucose 139 mg/dL (74-106) H 12/29/19 22:38 Uric Acid 5.8 mg/dL (2.6-7.2) 12/29/19 22:38 Calcium 9.7 mg/dL (8.5-10.1) 12/29/19 22:38 Total Bilirubin 0.2 mg/dL (0.2-1.0) 12/29/19 22:38 AST 13 IU/L (15-37) L 12/29/19 22:38 ALT 17 IU/L (14-63) 12/29/19 22:38 Alkaline Phosphatase 188 U/L (46-116) H 12/29/19 22:38 Total Protein 7.7 g/dL (6.4-8.2) 12/29/19 22:38 Albumin 3.0 g/dL (3.4-5.0) L 12/29/19 22:38 Globulin 4.7 g/dL (2.6-4.0) H 12/29/19 22:38 Albumin/Globulin Ratio 0.6 (0.9-1.6) L 12/29/19 22:38 Urine Color YELLOW 12/29/19 22:30 Urine Appearance CLEAR 12/29/19 22:30 Urine pH 7.0 (5.0-8.0) 12/29/19 22:30 Ur Specific [place] 1.010 (1.001-1.035) 12/29/19 22:30 Urine Protein NEGATIVE mg/dL (NEGATIVE) 12/29/19 22:30 Urine Glucose (UA) 250 mg/dL (NEGATIVE) H 12/29/19 22:30 Urine Ketones NEGATIVE mg/dL (NEGATIVE) 12/29/19 22:30 Urine Occult Blood NEGATIVE (NEGATIVE) 12/29/19 22:30 Urine Nitrite NEGATIVE (NEGATIVE) 12/29/19 22:30 Urine Bilirubin NEGATIVE (NEGATIVE) 12/29/19 22:30 Urine Urobilinogen 0.2 EU/dL (<2.0) 12/29/19 22:30 Ur Leukocyte Esterase NEGATIVE (NEGATIVE) 12/29/19 22:30 Ur Random Creatinine 25.6 mg/dL 12/29/19 22:30 U Random Total Protein 8.1 mg/dL (<11.9) 12/29/19 22:30 Protein/Creatinin Ratio 0.3 12/29/19 22:30 SARS-CoV-2 RNA (SHARATH) NEGATIVE (NEGATIVE) 12/30/19 01:32 C[employer]ETING [employer]N - Allergies Allergies/Adverse Reactions: Allergies Allergy/AdvReac Type Severity Reaction Status Date / Time No Known Allergies Allergy Verified 12/29/19 22:24 - Blood Blood Available: No - Anesthesia Plan Pre-Op Medication Ordered: Other (bicitra) - Acknowledgements Pt an Appropriate Candidate for the Planned Anesthesia: Yes Alternatives and Risks of Anesthesia Discussed w Pt/Guardian: Yes Pt/Guardian Understands and Agrees with Anesthesia Plan: Yes Additional Comments: spinal with duramorph PreAnesthesia Questionnaire - Past Health History Medical/Surgical History: Denies Medical/Surgical History HEENT History: Reports: None Cardiovascular History: Reports: High Cholesterol Respiratory History: Reports: None Gastrointestinal History: Reports: None Genitourinary History: Reports: None IMPLEMENTATION DIRECTOR History: Reports: Musculoskeletal History: Reports: None Neurological History: Reports: Vertigo Psychiatric History: Reports: None Endocrine/Metabolic History: Reports: None Hematologic History: Reports: None Immunologic History: Reports: None Oncologic (Cancer) History: Reports: None Dermatologic History: Reports: None - Infectious Disease History Infectious Disease History: Reports: None - Past Surgical History Head Surgeries/Procedures: Reports: None HEENT Surgical History: Reports: None Cardiovascular Surgical History: Reports: None Respiratory Surgical History: Reports: None GI Surgical History: Reports: None Female Surgical History: Reports: None Endocrine Surgical History: Reports: None Neurological Surgical History: Reports: None Musculoskeletal Surgical History: Reports: None Oncologic Surgical History: Reports: None Dermatological Surgical History: Reports: None - SUBSTANCE USE Tobacco Use Status *Q: Never Tobacco User Second Hand Smoke Exposure: No Recreational Drug Use History: No - HOME MEDS Home Medications: Home Meds Multivitamin [One-Daily Multi-Vitamin] 1 each PO DAILY 04/08/18 [History] Cholecalciferol (Vitamin D3) [Vitamin D] 5,000 unit PO DAILY 01/07/19 [History] ondansetron HCL [Zofran] 4 mg PO Q4HR #12 tablet 01/07/19 [Rx] Iron 300 mg PO DAILY 07/26/19 [History] Calcium Carbonate [Calcium] 500 mg PO DAILY 10/09/19 [History] Magnesium 30 mg PO DAILY 10/09/19 [History] Folic Acid 1 mg PO DAILY 12/22/19 [History] - CURRENT (IN HOUSE) MEDS Current Meds: Current Medications Lactated Ringer's (Ringers, Lactated) 1,000 mls @ 500 mls/hr IV BOLUS BRAEDEN Last Admin: 12/30/19 09:00 Dose: 500 mls/hr Documented by: Oxytocin/Sodium Chloride (Oxytocin 30 Unit/500 Ml-Ns) 30 unit in 500 mls @ 250 mls/hr IV TITRATE BRAEDEN Sodium Chloride (Saline Flush) 10 ml FLUSH ASDIRECTED PRN PRN Reason: Keep Vein Open Sodium Chloride (Saline Flush) 2.5 ml FLUSH ASDIRECTED PRN PRN Reason: Keep Vein Open Sodium Chloride (Normal Saline) 10 ml IV ASDIRECTED PRN PRN Reason: IV Use Discontinued Medications Cefazolin Sodium (Ancef) Confirm Administered Dose 2 gm .ROUTE .STK-MED ONE Stop: 12/30/19 08:40 Citric Acid/Sodium Citrate (Bicitra Solution) 30 ml PO ONETIME ONE Stop: 12/30/19 08:06 Last Admin: 12/30/19 08:48 Dose: 30 ml Documented by: Lactated Ringer's (Ringers, Lactated) 1,000 mls @ 500 mls/hr IV .BOLUS ONE Stop: 12/30/19 03:44 Last Admin: 12/30/19 02:30 Dose: 500 mls/hr Documented by: Cefazolin Sodium/Dextrose 1 gm (/ Premix) 50 mls @ 100 mls/hr IV ONETIME ONE Stop: 12/30/19 08:34 Sodium Chloride (Normal Saline) Confirm Administered Dose 20 mls @ as directed .ROUTE .STK-MED ONE Stop: 12/30/19 08:40 Ketorolac Tromethamine (Toradol) Confirm Administered Dose 30 mg .ROUTE .STK-MED ONE Stop: 12/30/19 08:40 Morphine Sulfate (Duramorph Pf) Confirm Administered Dose 10 mg .ROUTE .STK-MED ONE Stop: 12/30/19 08:23 Octyl Cyanoacrylate (Dermabond Advance) Confirm Administered Dose 1 applic .ROUTE .STK-MED ONE Stop: 12/30/19 08:43 Ondansetron HCl (Zofran) Confirm Administered Dose 4 mg .ROUTE .STK-MED ONE Stop: 12/30/19 08:40 Oxytocin (Pitocin) Confirm Administered Dose 20 unit .ROUTE .STK-MED ONE Stop: 12/30/19 08:40 Phenylephrine HCl (Ramon-Synephrine) Confirm Administered Dose 10 mg .ROUTE .STK- MED ONE Stop: 12/30/19 08:40
[2019-12-30] MEDS: Ketorolac 30 MG/ML SDV IVPUSH SCH ×3 (09:45→22:00)
--- NOTE | 2019-12-30 10:32 | PCM.POSTAN ---
POST ANESTHESIA ASSESSMENT - MENTAL STATUS Mental Status: Alert - VITAL SIGNS Vital Signs: Last Vital Signs Temp Pulse 80 12/30/19 10:05 Resp 16 12/30/19 10:05 BP 122/75 12/30/19 10:05 Pulse Ox 97 12/30/19 10:05 - RESPIRATORY Respiratory Status: Respiratory Rate WNL - CARDIOVASCULAR CV Status: Pulse Rate WNL - GASTROINTESTINAL GI Status: No Symptoms - POST OP HYDRATION Hydration Status: Adequate & Stable
--- NOTE | 2019-12-30 11:09 | PCM.OPNOTE ---
- General Post-Op/Procedure Note Date of Surgery/Procedure: 12/30/19 Operative Procedure(s): primary Findings: Normal appearing uterus, tubes and ovaries, normal appearing placenta except for short cord. Left paratubal cyst noted. Liveborn female 8/8 weight 1850 grams Pre Op Diagnosis: 36 2/7 weeks, growth restriction, abnormal testing. Post-Op Diagnosis: Same Anesthesia Technique: Spinal Primary Surgeon: Betzaida Rivera Anesthesia Provider: Kiran Ruvalcaba Entomology Professor: Elliott Augustin Pathology: placenta to pathology EBL in mLs: 400 Complications: None Known Condition: Good Free Text/Narrative:: Intake & Output 12/29/19 12/30/19 12/30/19 23:59 06:59 14:59 Intake Total 550 Output Total 300 Balance 250
[2019-12-30] MEDS ORDERED: diphenhydrAMINE 50 MG/ML SDV IVPUSH PRN (11:10)
[2019-12-30] MEDS ORDERED: Misoprostol 200 MCG Tab RECTAL PRN (11:10)
[2019-12-30] MEDS ORDERED: Lanolin 100% Cream 7 GM Tube TOP PRN (11:10)
[2019-12-30] MEDS ORDERED: Ondansetron 4 MG/2 ML SDV IVPUSH PRN (11:10)
[2019-12-30] MEDS ORDERED: Bisacodyl 10 MG Supp RECTAL PRN (11:10)
[2019-12-30] MEDS ORDERED: Methylergonovine 0.2 MG/1 ML Amp IM PRN (11:10)
[2019-12-30] MEDS ORDERED: Oxytocin 10 Units/1 ML SDV IM PRN (11:10)
[2019-12-30] MEDS ORDERED: Tranexamic Acid 1,000 MG in Sodium Chloride 0.9% 100 ML IV PRN (11:10)
[2019-12-30] MEDS ORDERED: Oxytocin/Lactated Ringers 30 UNIT/500 ML BAG IV SCH (11:15)
[2019-12-30] MEDS ORDERED: Lactated Ringers 1,000 ML IV SCH (11:15)
--- NOTE | 2019-12-30 11:49 | OR ---
SURGEON: Betzaida Rivera M.D. DATE OF PROCEDURE: 12/30/2019 PREOPERATIVE DIAGNOSES: 36-2/7 week intrauterine , intrauterine growth restriction, non- reassuring testing. POSTOPERATIVE DIAGNOSIS: 36-2/7 week intrauterine , intrauterine growth restriction, non- reassuring testing. PROCEDURE: Primary low transverse section. PRIMARY SURGEON: Betzaida Rivera M.D. ANESTHESIA: Spinal. ESTIMATED BLOOD LOSS: 400 mL. FINDINGS: Liveborn female, scores 8 and 8, weighing 1850 g. The cord was noted to be short. Otherwise, normal-appearing uterus, tubes, and ovaries. There was note made of a left paratubal cyst. PATHOLOGY: The placenta was sent to pathology due to IUGR. COMPLICATIONS: None known. DISPOSITION: Mother and baby are in LDR in good condition. BRIEF HISTORY: This is a 29-year-old female, G1, P0. She presents at 36-2/7 weeks' gestation. Initially, she had called due to elevated blood pressures at home. However, she was observed on labor and delivery with normal blood pressures and normal preeclamptic labs. She has been followed closely throughout the for symmetric IUGR within normal noninvasive testing. She has been followed with umbilical artery Dopplers and sequential biophysical profiles and at 36 weeks, did receive steroid injection. She is greater than 24 hours from her last dose of steroid for lung maturity. Upon observation, for the hypertension concern, note was made of recurrent late decelerations with extensive episodes of minimal variability on the monitoring and her biophysical profile was obtained and had 2 off for breathing giving her a total score of 6/10. There were, over a 12-hour time period, 3 accelerations of 10 beats per minute. Otherwise, nonreactive NST and with a few nonlabored contractions she was having, subtle lates were occurring. I discussed this with the patient. I recommended proceeding with delivery. I did discuss that I do not feel this baby will tolerate labor of any sort due to the late decelerations already appearing with minimal contractions and I did offer induction of labor if she should choose, but preferred to proceed with a primary with risks discussed including bleeding; infection; injury to bowel, bladder, blood vessels, ureters, or other organs; risk of thromboembolic event. Understanding all these risks, she does desire to proceed with a primary low transverse section. DESCRIPTION OF PROCEDURE: With the patient in left tilt position, under adequate spinal analgesia, the abdomen was prepped with chlorhexidine and draped in usual fashion for abdominal surgery. SCDs were in place. Hughes catheter had been placed. She had received 2 g of Ancef IV and an appropriate time-out was held. After documentation of adequate analgesia, a transverse curvilinear incision was made 2 cm cephalad from the pubic symphysis and carried through subcutaneous tissue to the fascia which was scored transversely in the midline. The fascial incision was extended laterally using curved Mayer scissors and the fascia was elevated from the underlying rectus muscles and using sharp and blunt dissection. The rectus muscles were bluntly in the midline. A finger was used to enter the peritoneal cavity. The incision was extended using blunt dissection. The Srikanth O retractor was placed. The visceroperitoneum over the lower uterine segment was incised to develop an adequate bladder flap. A transverse curvilinear incision was made over the lower uterine segment with a scalpel. A finger was used to enter the amniotic cavity. Clear fluid was noted. The incision was extended using cephalad and caudad traction to extend the transverse curvilinear incision. The head was delivered via the uterine incision. The infant was bulb suctioned by nose and mouth and after allowing cord blood circulation for 1 minute, the cord was doubly clamped and cut. The cord was noted to be quite short. The infant was a liveborn female, scores 8 and 8, weighing 1850 g. Cord blood was collected for cord ABGs as well as routine cord blood sampling. Pitocin was initiated after delivery of the to assist with uterine contractions and delivery of the placenta which was delivered with fundal massage and manual extraction. The cervix was opened with ring forceps. The uterus was cleaned with a dry laparotomy tape. The uterine incision was closed with a running lock suture of 0 Polysorb followed by an imbricating layer of 0 Polysorb. Pericolic gutters and posterior cul-de-sac were cleaned with wet laparotomy tape. The uterine incision was again inspected and was hemostatic. Therefore, the Srikanth O retractor was removed. Final inspection revealed hemostasis. The peritoneum and muscle were then reapproximated using a running mattress suture of 0 Polysorb. The posterior aspect of the fascia was inspected. Any areas of bleeding that were noted were cauterized. The fascial incision was closed with a running suture of 0 Polysorb. Subcutaneous tissue was irrigated. Any areas of bleeding that were noted were cauterized and a subcuticular suture of 3-0 Vicryl was utilized to reapproximate the skin followed by Dermabond. Final sponge, needle, and instrument counts were reported as correct. There were no known complications. The patient was transferred to Recovery in good condition. KRYSTEN / ANJU /[id number]
[2019-12-30] MEDS: Docusate Sodium 100 MG Cap PO SCH (22:01)
[2019-12-31] MEDS: Ketorolac 30 MG/ML SDV IVPUSH SCH ×2 (04:00→10:19)
--- NOTE | 2019-12-31 07:26 | PCM48HPAN ---
Post Anesthesia Note - EVALUATION WITHIN 48HRS OF ANESTHETIC Vital Signs in Normal Range: Yes Patient Participated in Evaluation: Yes Respiratory Function Stable: Yes Airway Patent: Yes Cardiovascular Function Stable: Yes Hydration Status Stable: Yes Pain Control Satisfactory: Yes Nausea and Vomiting Control Satisfactory: Yes Mental Status Recovered: Yes Vital Signs: Last Vital Signs Temp 36.4 C 12/31/19 04:00 Pulse 77 12/31/19 06:51 Resp 16 12/31/19 06:51 BP 138/82 12/31/19 04:00 Pulse Ox 93 L 12/31/19 06:51
--- NOTE | 2019-12-31 09:17 | PCM.PNPP ---
- General Info Date of Service: 12/31/19 Functional Status: Reports: Pain Controlled, Tolerating Diet, Ambulating, Urinating - Review of Systems General: Reports: No Symptoms HEENT: Reports: No Symptoms Pulmonary: Reports: No Symptoms Cardiovascular: Reports: No Symptoms Gastrointestinal: Reports: No Symptoms Genitourinary: Reports: No Symptoms Musculoskeletal: Reports: No Symptoms Skin: Reports: No Symptoms Neurological: Reports: No Symptoms Psychiatric: Reports: No Symptoms - Patient Data Vital Signs - Most Recent: Last Vital Signs Temp 36.4 C 12/31/19 04:00 Pulse 77 12/31/19 06:51 Resp 16 12/31/19 06:51 BP 138/82 12/31/19 04:00 Pulse Ox 93 L 12/31/19 06:51 Weight - Most Recent: 157 lb I&O - Last 24 Hours: Intake & Output 12/30/19 12/31/19 12/31/19 22:59 06:59 14:59 Intake Total 800 Output Total 275 900 Balance -275 -100 Lab Results - Last 24 Hours: Laboratory Results - last 24 hr 12/30/19 12/31/19 Range/Units 09:35 05:50 Hgb 10.0 L (12.0-16.0) g/dL Hct 29.7 L (36.0-46.0) % Cord ABG pH 7.302 (7.18-7.38) Cord ABG Base Excess -4 (-10--2) Cord VBG pH 7.306 (7.25-7.45) Cord VBG Base Excess -3 (-10--2) Med Orders - Current: Current Medications Bisacodyl (Dulcolax) 10 mg RECTAL ONETIME PRN PRN Reason: Constipation Diphenhydramine HCl (Benadryl) 25 mg IVPUSH Q6H PRN PRN Reason: Itching or Nausea Last Admin: 12/31/19 01:01 Dose: 25 mg Documented by: Docusate Sodium (Colace) 100 mg PO BID BRAEDEN Last Admin: 12/30/19 22:01 Dose: 100 mg Documented by: Emollient Ointment (Lansinoh Hpa) 0 gm TOP ASDIRECTED PRN PRN Reason: Sore Nipples Lactated Ringer's (Ringers, Lactated) 1,000 mls @ 125 mls/hr IV ASDIRECTED BRAEDEN Oxytocin/Lactated Ringer's (Pitocin In Lr 30 Units/500 Ml) 30 unit in 500 mls @ 999 mls/hr IV TITRATE BRAEDEN; Protocol Tranexamic Acid 1,000 mg/ (Sodium Chloride) 110 mls @ 660 mls/hr IV ONETIME PRN PRN Reason: Bleeding Ibuprofen (Motrin) 800 mg PO Q8H PRN PRN Reason: mild pain or fever Ketorolac Tromethamine (Toradol) 30 mg IVPUSH Q6H BRAEDEN Stop: 12/31/19 16:01 Last Admin: 12/31/19 04:00 Dose: 30 mg Documented by: Methylergonovine Maleate (Methergine) 0.2 mg IM ONETIME PRN PRN Reason: Excessive Vaginal Bleeding Misoprostol (Cytotec) 1,000 mcg RECTAL ONETIME PRN PRN Reason: excessive bleeding Ondansetron HCl (Zofran) 4 mg IVPUSH Q4H PRN PRN Reason: Nausea/Vomiting Oxycodone/Acetaminophen (Percocet 325-5 Mg) 1 tab PO ONETIME PRN PRN Reason: Pain (moderate 4-6) Oxycodone/Acetaminophen (Percocet 325-5 Mg) 1 tab PO Q4H PRN PRN Reason: Pain (moderate 4-6) Oxycodone/Acetaminophen (Percocet 325-5 Mg) 2 tab PO Q4H PRN PRN Reason: Pain (moderate 4-6) Oxytocin (Pitocin) 10 unit IM ASDIRECTED PRN PRN Reason: Excessive Vaginal Bleeding Discontinued Medications Cefazolin Sodium (Ancef) Confirm Administered Dose 2 gm .ROUTE .STK-MED ONE Stop: 12/30/19 08:40 Citric Acid/Sodium Citrate (Bicitra Solution) 30 ml PO ONETIME ONE Stop: 12/30/19 08:06 Last Admin: 12/30/19 08:48 Dose: 30 ml Documented by: Fentanyl (Sublimaze) 50 mcg IVPUSH Q5M PRN PRN Reason: Pain (severe 7-10) Stop: 12/31/19 09:07 Lactated Ringer's (Ringers, Lactated) 1,000 mls @ 500 mls/hr IV .BOLUS ONE Stop: 12/30/19 03:44 Last Admin: 12/30/19 02:30 Dose: 500 mls/hr Documented by: Lactated Ringer's (Ringers, Lactated) 1,000 mls @ 500 mls/hr IV BOLUS [facility] Last Admin: 12/30/19 09:00 Dose: 500 mls/hr Documented by: Oxytocin/Sodium Chloride (Oxytocin 30 Unit/500 Ml-Ns) 30 unit in 500 mls @ 250 mls/hr IV TITRATE [facility] Cefazolin Sodium/Dextrose 1 gm (/ Premix) 50 mls @ 100 mls/hr IV ONETIME ONE Stop: 12/30/19 08:34 Sodium Chloride (Normal Saline) Confirm Administered Dose 20 mls @ as directed .ROUTE .STK-MED ONE Stop: 12/30/19 08:40 Ketorolac Tromethamine (Toradol) Confirm Administered Dose 30 mg .ROUTE .STK-MED ONE Stop: 12/30/19 08:40 Ketorolac Tromethamine (Toradol) 30 mg IVPUSH Q6H BRAEDEN Stop: 12/31/19 11:16 Last Admin: 12/30/19 15:45 Dose: 30 mg Documented by: Morphine Sulfate (Duramorph Pf) Confirm Administered Dose 10 mg .ROUTE .STK-MED ONE Stop: 12/30/19 08:23 Octyl Cyanoacrylate (Dermabond Advance) Confirm Administered Dose 1 applic .ROUTE .STK-MED ONE Stop: 12/30/19 08:43 Octyl Cyanoacrylate (Dermabond Advance) Confirm Administered Dose 1 applic .ROUTE .STK-MED ONE Stop: 12/30/19 09:56 Ondansetron HCl (Zofran) Confirm Administered Dose 4 mg .ROUTE .STK-MED ONE Stop: 12/30/19 08:40 Oxytocin (Pitocin) Confirm Administered Dose 20 unit .ROUTE .STK-MED ONE Stop: 12/30/19 08:40 Phenylephrine HCl (Ramon-Synephrine) Confirm Administered Dose 10 mg .ROUTE .STK- MED ONE Stop: 12/30/19 08:40 Sodium Chloride (Saline Flush) 10 ml FLUSH ASDIRECTED PRN PRN Reason: Keep Vein Open Last Admin: 12/30/19 22:01 Dose: 10 ml Documented by: Sodium Chloride (Saline Flush) 2.5 ml FLUSH ASDIRECTED PRN PRN Reason: Keep Vein Open Sodium Chloride (Normal Saline) 10 ml IV ASDIRECTED PRN PRN Reason: IV Use - Infant Interaction Disposition, : [place] at Bedside Feeding: Breastfed Infant; Nursed Well Support Person: - Recovery Exam Fundal Tone: Firm Fundal Level: At Umbilicus Fundal Placement: Midline Lochia Amount: Scant Lochia Color: Rubra/Red Perineum Description: Intact, Minimal Bruising/Swelling Episiotomy/Laceration: None Bladder Status: Indwelling Catheter in Place Urinary Elimination: Indwelling Catheter - Exam General: Alert, Oriented, Cooperative, No Acute Distress HEENT: Pupils Equal, Pupils Reactive Neck: Supple, Trachea Midline Lungs: Normal Respiratory Effort GI/Abdominal Exam: Soft, Non-Tender, No Organomegaly, No Distention Extremities: Normal Inspection, Normal Range of Motion, Non-Tender, No Pedal Edema Skin: Warm, Dry, Intact Wound/Incisions: Healing Well Neurological: No New Focal Deficit Psy/Mental Status: Alert, Normal Affect, Normal Mood - Problem List Review Problem List Initiated/Reviewed/Updated: Yes - My Orders Last 24 Hours: My Active Orders 12/31/19 09:09 Ready for Discharge [RC] PER UNIT ROUTINE - Assessment Assessment:: 29yo POD1 s/p 1*LTCS due to nonreassuring FHR, complicated by IUGR and gHTN. Stable and recovering well. - Plan Plan:: - BP normotensive to low mild range - Hgb 10, bleeding is light, denies s/s of anemia - pain controlled - Baby transferred to [facility] due to elevated BP, she desires to leave today to visit baby. Reviewed postop care instructions, advised daily BP checks and call if BP is persistently 150/100, or worsening symptoms.
[2019-12-31] MEDS: Docusate Sodium 100 MG Cap PO SCH ×2 (10:18→20:55)
[2019-12-31] MEDS: Acetaminophen/oxyCODONE 325-5 MG Tab PO PRN ×3 (13:49→20:52)
[2019-12-31] MEDS: Ibuprofen 800 MG Tab PO PRN (16:32)
[2020-01-01] MEDS: Ibuprofen 800 MG Tab PO PRN ×2 (02:34→10:36)
--- NOTE | 2020-01-01 08:16 | PCM.PNPP ---
- General Info Date of Service: 01/01/20 Functional Status: Reports: Pain Controlled, Tolerating Diet, Ambulating, Urinating - Review of Systems General: Reports: No Symptoms HEENT: Reports: No Symptoms Pulmonary: Reports: No Symptoms Cardiovascular: Reports: No Symptoms Gastrointestinal: Reports: No Symptoms Genitourinary: Reports: No Symptoms Musculoskeletal: Reports: No Symptoms Skin: Reports: No Symptoms Neurological: Reports: No Symptoms Psychiatric: Reports: No Symptoms - Patient Data Vital Signs - Most Recent: Last Vital Signs Temp 36.3 C 01/01/20 05:30 Pulse 88 01/01/20 05:30 Resp 17 01/01/20 05:30 BP 128/79 01/01/20 05:30 Pulse Ox 95 01/01/20 05:30 Weight - Most Recent: 157 lb Med Orders - Current: Current Medications Bisacodyl (Dulcolax) 10 mg RECTAL ONETIME PRN PRN Reason: Constipation Diphenhydramine HCl (Benadryl) 25 mg IVPUSH Q6H PRN PRN Reason: Itching or Nausea Last Admin: 12/31/19 01:01 Dose: 25 mg Documented by: Docusate Sodium (Colace) 100 mg PO BID BRAEDEN Last Admin: 12/31/19 20:55 Dose: 100 mg Documented by: Emollient Ointment (Lansinoh Hpa) 0 gm TOP ASDIRECTED PRN PRN Reason: Sore Nipples Lactated Ringer's (Ringers, Lactated) 1,000 mls @ 125 mls/hr IV ASDIRECTED BRAEDEN Oxytocin/Lactated Ringer's (Pitocin In Lr 30 Units/500 Ml) 30 unit in 500 mls @ 999 mls/hr IV TITRATE BRAEDEN; Protocol Tranexamic Acid 1,000 mg/ (Sodium Chloride) 110 mls @ 660 mls/hr IV ONETIME PRN PRN Reason: Bleeding Ibuprofen (Motrin) 800 mg PO Q8H PRN PRN Reason: mild pain or fever Last Admin: 01/01/20 02:34 Dose: 800 mg Documented by: Methylergonovine Maleate (Methergine) 0.2 mg IM ONETIME PRN PRN Reason: Excessive Vaginal Bleeding Misoprostol (Cytotec) 1,000 mcg RECTAL ONETIME PRN PRN Reason: excessive bleeding Ondansetron HCl (Zofran) 4 mg IVPUSH Q4H PRN PRN Reason: Nausea/Vomiting Oxycodone/Acetaminophen (Percocet 325-5 Mg) 1 tab PO ONETIME PRN PRN Reason: Pain (moderate 4-6) Oxycodone/Acetaminophen (Percocet 325-5 Mg) 1 tab PO Q4H PRN PRN Reason: Pain (moderate 4-6) Last Admin: 12/31/19 20:52 Dose: 1 tab Documented by: Oxycodone/Acetaminophen (Percocet 325-5 Mg) 2 tab PO Q4H PRN PRN Reason: Pain (moderate 4-6) Oxytocin (Pitocin) 10 unit IM ASDIRECTED PRN PRN Reason: Excessive Vaginal Bleeding Discontinued Medications Cefazolin Sodium (Ancef) Confirm Administered Dose 2 gm .ROUTE .STK-MED ONE Stop: 12/30/19 08:40 Citric Acid/Sodium Citrate (Bicitra Solution) 30 ml PO ONETIME ONE Stop: 12/30/19 08:06 Last Admin: 12/30/19 08:48 Dose: 30 ml Documented by: Fentanyl (Sublimaze) 50 mcg IVPUSH Q5M PRN PRN Reason: Pain (severe 7-10) Stop: 12/31/19 09:07 Lactated Ringer's (Ringers, Lactated) 1,000 mls @ 500 mls/hr IV .BOLUS ONE Stop: 12/30/19 03:44 Last Admin: 12/30/19 02:30 Dose: 500 mls/hr Documented by: Lactated Ringer's (Ringers, Lactated) 1,000 mls @ 500 mls/hr IV BOLUS BRAEDEN Last Admin: 12/30/19 09:00 Dose: 500 mls/hr Documented by: Oxytocin/Sodium Chloride (Oxytocin 30 Unit/500 Ml-Ns) 30 unit in 500 mls @ 250 mls/hr IV TITRATE BRAEDEN Cefazolin Sodium/Dextrose 1 gm (/ Premix) 50 mls @ 100 mls/hr IV ONETIME ONE Stop: 12/30/19 08:34 Sodium Chloride (Normal Saline) Confirm Administered Dose 20 mls @ as directed .ROUTE .STK-MED ONE Stop: 12/30/19 08:40 Ketorolac Tromethamine (Toradol) Confirm Administered Dose 30 mg .ROUTE .STK-MED ONE Stop: 12/30/19 08:40 Ketorolac Tromethamine (Toradol) 30 mg IVPUSH Q6H [facility] Stop: 12/31/19 11:16 Last Admin: 12/30/19 15:45 Dose: 30 mg Documented by: Ketorolac Tromethamine (Toradol) 30 mg IVPUSH Q6H [facility] Stop: 12/31/19 16:01 Last Admin: 12/31/19 10:19 Dose: 30 mg Documented by: Morphine Sulfate (Duramorph Pf) Confirm Administered Dose 10 mg .ROUTE .STK-MED ONE Stop: 12/30/19 08:23 Octyl Cyanoacrylate (Dermabond Advance) Confirm Administered Dose 1 applic .ROUTE .STK-MED ONE Stop: 12/30/19 08:43 Octyl Cyanoacrylate (Dermabond Advance) Confirm Administered Dose 1 applic .ROUTE .STK-MED ONE Stop: 12/30/19 09:56 Ondansetron HCl (Zofran) Confirm Administered Dose 4 mg .ROUTE .STK-MED ONE Stop: 12/30/19 08:40 Oxytocin (Pitocin) Confirm Administered Dose 20 unit .ROUTE .STK-MED ONE Stop: 12/30/19 08:40 Phenylephrine HCl (Ramon-Synephrine) Confirm Administered Dose 10 mg .ROUTE .STK- MED ONE Stop: 12/30/19 08:40 Sodium Chloride (Saline Flush) 10 ml FLUSH ASDIRECTED PRN PRN Reason: Keep Vein Open Last Admin: 12/30/19 22:01 Dose: 10 ml Documented by: Sodium Chloride (Saline Flush) 2.5 ml FLUSH ASDIRECTED PRN PRN Reason: Keep Vein Open Sodium Chloride (Normal Saline) 10 ml IV ASDIRECTED PRN PRN Reason: IV Use - Interaction Disposition, : at Bedside Infant Feeding: Breastfed Infant; Nursed Well Support Person: - Recovery Exam Fundal Tone: Firm Fundal Level: 1 Fingerbreadths Below Umbilicus Fundal Placement: Midline Lochia Amount: Scant Lochia Color: Rubra/Red Perineum Description: Intact, Minimal Bruising/Swelling Episiotomy/Laceration: None Bladder Status: Voiding Urinary Elimination: Voided - Exam General: Alert, Oriented, Cooperative, No Acute Distress HEENT: Pupils Equal, Pupils Reactive Neck: Supple, Trachea Midline, No JVD Lungs: Normal Respiratory Effort GI/Abdominal Exam: Soft, Non-Tender, No Organomegaly, No Distention Extremities: Normal Inspection, Normal Range of Motion, Non-Tender, No Pedal Edema Skin: Warm, Dry, Intact Wound/Incisions: Healing Well Neurological: No New Focal Deficit Psy/Mental Status: Alert, Normal Affect, Normal Mood - Problem List Review Problem List Initiated/Reviewed/Updated: Yes - My Orders Last 24 Hours: My Active Orders 01/01/20 08:13 Ready for Discharge [RC] PER UNIT ROUTINE - Assessment Assessment:: 29yo POD2 s/p 1*LTCS due to nonreassuring FHR, complicated by IUGR and gHTN. Stable and recovering well. - Plan Plan:: - BP normotensive, denies symptoms - Hgb 10, bleeding is light, denies s/s of anemia - pain controlled - hx of constipation, passing flatus, advised to continue stool softeners - Stable for discharge home today. Reviewed postop care instructions, advised daily BP checks and call if BP is persistently 150/100, or worsening symptoms.
[2020-01-01] MEDS: Docusate Sodium 100 MG Cap PO SCH (10:39)
== END 2020-01-01 10:45 | disposition home or self-care (01) | DRG 788 ==
LOC: MW.OBCHECK 21:58 → MW.OB 21:59 → MW.OBCHECK 12-30 08:04 → MW.OB 12-30 08:05 → OBSVTOIN 12-30 09:34 → MW.OB 12-30 10:57
PROVIDERS: ADMIT Obstetrics & Gynecology; ATTEND Obstetrics & Gynecology
PROC: 10D00Z1 Extraction of Products of Conception, Low, Open Approach (ICD-10-PCS; principal; 2019-12-30)
PROC: 4A0HXCZ Measurement of Products of Conception, Cardiac Rate, External Approach (ICD-10-PCS; 2019-12-30)
DX: O36.5930 Maternal care for other known or suspected poor fetal growth, third trimester, not applicable or unspecified (principal); O13.4 Gestational [pregnancy-induced] hypertension without significant proteinuria, complicating childbirth; O76 Abnormality in fetal heart rate and rhythm complicating labor and delivery; Z20.828 Contact with and (suspected) exposure to other viral communicable diseases; Z3A.36 36 weeks gestation of pregnancy; Z37.0 Single live birth; Z82.49 Family history of ischemic heart disease and other diseases of the circulatory system; Z83.42 Family history of familial hypercholesterolemia; Z86.39 Personal history of other endocrine, nutritional and metabolic disease; Z82.3 Family history of stroke
CPT/HCPCS: 01961; 36415; 59025; 76819; 76819-26; 80053; 81003; 82570; 82803; 84156; 84550; 85014; 85018; 85025; 86592; 86850; 86900; 86901; 88307; A9270-GY; J0690; J1200; J1885; J2270; J2370; J2405; J2590; J7120; U0002

== ENCOUNTER 2020-03-26 17:35 | Emergency (ER) | payer OTHER ==
--- NOTE | 2020-03-26 17:53 | EDM.PDOC ---
<Clyde Collado - Last Filed: 03/26/20 18:45> ED HPI GENERAL MEDICAL PROBLEM - General Chief Complaint: Abdominal Pain Stated Complaint: UPPER RIGHT SIDE OF STOMACH PAIN Time Seen by Provider: 03/26/20 17:35 Source of Information: Reports: Patient History Limitations: Reports: No Limitations - History of Present Illness INITIAL COMMENTS - FREE TEXT/NARRATIVE: 29-year-old female no past medical history recent section 3 months ago presents for abdominal pain. Pain has been on and off for the last 2 months and worsening over the last week or so. Pain is mostly in her right upper quadrant and sometimes in her left upper quadrant. She notes increased bloating, gas, feelings of constipation. She has been trying chocolate laxatives as well as MiraLAX for the last week. She notes small hard stools with mucousy bloody stool. She denies any urinary symptoms. She denies any fevers. Aside from the she has no surgical history. She notes that she struggled with constipation in but that it responded very well to MiraLAX. - Related Data Allergies Allergy/AdvReac Type Severity Reaction Status Date / Time No Known Allergies Allergy Verified 03/26/20 18:28 Home Meds: Home Meds . 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: Musculoskeletal History: Reports: None Neurological History: Reports: Vertigo Psychiatric History: Reports: None Endocrine/Metabolic History: Reports: None Hematologic History: Reports: None Immunologic History: Reports: None Oncologic (Cancer) History: Reports: None Dermatologic History: Reports: None - Infectious Disease History Infectious Disease History: Reports: None - Past Surgical History Head Surgeries/Procedures: Reports: None HEENT Surgical History: Reports: None Cardiovascular Surgical History: Reports: None Respiratory Surgical History: Reports: None GI Surgical History: Reports: None Female Surgical History: Reports: None Endocrine Surgical History: Reports: None Neurological Surgical History: Reports: None Musculoskeletal Surgical History: Reports: None Oncologic Surgical History: Reports: None Dermatological Surgical History: Reports: None Social & Family History - Family History Family Medical History: No Pertinent Family History - Caffeine Use Caffeine Use: Reports: None ED ROS GENERAL - Review of Systems Review Of Systems: Comprehensive ROS is negative, except as noted in HPI. ED EXAM, GENERAL - Physical Exam Exam: See Below Exam Limited By: No Limitations General Appearance: Alert, WD/WN, No Apparent Distress Throat/Mouth: Normal Voice, No Airway Compromise Head: Atraumatic, Normocephalic Neck: Normal Inspection Respiratory/Chest: No Respiratory Distress, Lungs Clear, Normal Breath Sounds, No Accessory Muscle Use Cardiovascular: Normal Peripheral Pulses, Regular Rate, Rhythm GI/Abdominal: Soft, No Distention, No Mass, Other (RUQ and LLQ TTP without guarding or rebound) Extremities: Normal Inspection Neurological: Alert, Normal Gait Psychiatric: Normal Affect, Normal Mood Skin Exam: Warm, Dry, Intact, Normal Color Course - Re-Assessments/Exams Free Text/Narrative Re-Assessment/Exam: 03/26/20 18:02 We will get basic labs, will give IV fluids, will get urinalysis, will get CT abdomen pelvis. We will follow up results and disposition accordingly. Differential includes gallbladder pathology, constipation, diverticulitis, enteritis. 03/26/20 18:45 Patient care transitioned to COMMERCIAL LOAN PROCESSOR Ribgy to f/u labs and imaging Departure - Departure Disposition: Home, Self-Care 01 Clinical Impression: Constipation Qualifiers: Constipation type: unspecified constipation type Qualified Code(s): K59.00 - Constipation, unspecified Abdominal pain Qualifiers: Abdominal location: right upper quadrant Qualified Code(s): R10.11 - Right upper quadrant pain - Discharge Information Instructions: Constipation, Adult, [id number] Referrals: Srikanth Swift COMMERCIAL LOAN PROCESSOR [Primary Care Provider] - Forms: ED Department Discharge Additional Instructions: The following information is given to patients seen in the emergency department who are being discharged to home. This information is to outline your options for follow-up care. We provide all patients seen in our emergency department with a follow-up referral. The need for follow-up, as well as the timing and circumstances, are variable depending upon the specifics of your emergency department visit. If you don't have a primary care physician on staff, we will provide you with a referral. We always advise you to contact your personal physician following an emergency department visit to inform them of the circumstance of the visit and for follow-up with them and/or the need for any referrals to a consulting spec ialist. The emergency department will also refer you to a specialist when appropriate. This referral assures that you have the opportunity for follow-up care with a specialist. All of these measure are taken in an effort to provide you with optimal care, which includes your follow-up. Under all circumstances we always encourage you to contact your private physician who remains a resource for coordinating your care. When calling for follow-up care, please make the office aware that this follow-up is from your recent emergency room visit. If for any reason you are refused follow-up, please contact the [facility] Emergency Department at and asked to speak to the emergency department charge nurse. [facility] [address] [place] [id number] [place] [address] Thank you for choosing the [facility] emergency department in [place] for your medical needs today. It was a pleasure caring for you. Today you were seen in the emergency department for constipation. 1. WHEN YOU GET HOME: Please administer the enema as we discussed. You can start by taking half of the bottle of magnesium citrate which will help move along having a bowel movement. If you do not have a successful bowel movement, you can take the rest of the magnesium citrate as we discussed. 2. You can alternate Tylenol and ibuprofen as needed for pain and fever management. 3. We encourage you to follow up with your primary care provider and/or recommended specialist in the next few days for re-evaluation and further care/management. 4. If your symptoms should worsen, new symptoms develop or any of the signs and symptoms we discussed should arise please return to the emergency room or call 911 (if needed). <Rylan Alvarado E - Last Filed: 03/26/20 20:06> ED HPI GENERAL MEDICAL PROBLEM - History of Present Illness INITIAL COMMENTS - FREE TEXT/NARRATIVE: HISTORY AND PHYSICAL: History of present illness: Physical exam: General: Well developed and well nourished. Alert and orientated x 3. Nontoxic in appearance and in no acute distress. Vital signs are stable and have been reviewed by me. Nursing notes were reviewed. Abdomen: Soft, nondistended, nontender. Normoactive bowel sounds. Negative for masses or costovertebral tenderness. Skin: Intact, warm, dry. No lesions or rashes noted. Hematologic: No petechiae or purpra. Mucosa appropriate color and normal nail bed color and refill. Extremities: Atraumatic, moves all extremities per self without difficulty or deficits, negative for cords or calf pain. Neurovascular unremarkable. Notes: *This patient was seen and evaluated during the 2019 SARS-CoV-2 novel coronavirus pandemic period. Community viral transmission is ongoing at time of this encounter and the emergency department is operating under pandemic response procedures. Lab work is unremarkable. CT shows moderate nonspecific stool seen throughout the colon. Minimal colonic diverticulosis of the sigmoid colon which is moderately decompressed. Low-grade inflammatory changes would be difficult to exclude. Demonstration of a somewhat contracted appearing gallbladder. I have talked with the patient about today's findings, in addition to providing specific details for plan of care. I did offer to provide an enema and the magnesium citrate while she is here. She states she would prefer to do this in the comfort of her own home. We discussed how to do this in great length along with signs and symptoms that would prompt her to return to the emergency room. Reassessment at the time of disposition demonstrates that the patient is in no acute distress. The patient is stable for discharge, counseling was provided and we discussed in great detail signs and symptoms that would prompt them to return to the Emergency Department. Medication, follow up and supportive care measures were reviewed and discussed. Voices understanding and is agreeable to plan of care. Denies any further questions or concerns at this time. Impression: Constipation Abdominal Pain Plan: 1. Please administer the enema as we discussed. You can start by taking half of the bottle of magnesium citrate which will help move along having a bowel movement. If you do not have a successful bowel movement, you can take the rest of the magnesium citrate as we discussed. 2. You can alternate Tylenol and ibuprofen as needed for pain and fever management. 3. We encourage you to follow up with your primary care provider and/or kirk mmended specialist in the next few days for re-evaluation and further care/management. 4. If your symptoms should worsen, new symptoms develop or any of the signs and symptoms we discussed should arise please return to the emergency room or call 911 (if needed). Definitive disposition and diagnosis as appropriate pending reevaluation and review of above. Course - Vital Signs Last Recorded V/S: Last Vital Signs Temp 98.0 F 03/26/20 17:50 Pulse 70 03/26/20 17:50 Resp 18 03/26/20 17:50 BP 146/94 H 03/26/20 17:50 Pulse Ox 99 03/26/20 17:50 - Orders/Labs/Meds Orders: Active Orders 24 hr Category Date Time Status Enema [RC] ASDIRECTED Care 03/26/20 19:54 Active Sodium Chloride 0.9% [Saline Flush] Med 03/26/20 17:59 Active 10 ml FLUSH ASDIRECTED PRN Sodium Chloride 0.9% [Saline Flush] Med 03/26/20 17:59 Active 2.5 ml FLUSH ASDIRECTED PRN Saline Lock Insert [OM.PC] Stat Oth 03/26/20 17:59 Ordered Medication Orders Sodium Chloride (Saline Flush) 10 ml FLUSH ASDIRECTED PRN PRN Reason: Keep Vein Open Last Admin: 03/26/20 18:29 Dose: 10 ml Documented by: [id number] Sodium Chloride (Saline Flush) 2.5 ml FLUSH ASDIRECTED PRN PRN Reason: Keep Vein Open Last Admin: 03/26/20 18:28 Dose: 2.5 ml Documented by: [email or web address] Labs: Laboratory Tests 03/26/20 03/26/20 03/26/20 Range/Units 17:59 18:10 18:10 WBC 5.39 (4.0-11.0) K/uL RBC 4.45 (4.30-5.90) M/uL Hgb 12.5 (12.0-16.0) g/dL Hct 36.8 (36.0-46.0) % MCV 82.7 (80.0-98.0) fL MCH 28.1 (27.0-32.0) pg MCHC 34.0 (31.0-37.0) g/dL RDW Std Deviation 40.9 (28.0-62.0) fl RDW Coeff of Lety 14 (11.0-15.0) % Plt Count 282 (150-400) K/uL MPV 11.50 (7.40-12.00) fL Neut % (Auto) 41.6 L (48.0-80.0) % Lymph % (Auto) 50.6 H (16.0-40.0) % [place] % (Auto) 6.9 (0.0-15.0) % Eos % (Auto) 0.2 (0.0-7.0) % Baso % (Auto) 0.7 (0.0-1.5) % Neut # (Auto) 2.2 (1.4-5.7) K/uL Lymph # (Auto) 2.7 H (0.6-2.4) K/uL [place] # (Auto) 0.4 (0.0-0.8) K/uL Eos # (Auto) 0.0 (0.0-0.7) K/uL Baso # (Auto) 0.0 (0.0-0.1) K/uL Nucleated RBC % 0.0 /100WBC Nucleated RBCs # 0 K/uL Lactate 1.0 (0.20-2.00) mmol/L Sodium (136-145) mmol/L Potassium (3.5-5.1) mmol/L Chloride (98-107) mmol/L Carbon Dioxide (21.0-32.0) mmol/L BUN (7.0-18.0) mg/dL Creatinine (0.6-1.0) mg/dL Est Cr Clr Drug Dosing mL/min Estimated GFR (MDRD) ml/min Glucose (74-106) mg/dL Calcium (8.5-10.1) mg/dL Total Bilirubin (0.2-1.0) mg/dL AST (15-37) IU/L ALT (14-63) IU/L Alkaline Phosphatase (46-116) U/L Total Protein (6.4-8.2) g/dL Albumin (3.4-5.0) g/dL Globulin (2.6-4.0) g/dL Albumin/Globulin Ratio (0.9-1.6) Lipase (73-393) U/L Urine HCG, Qual NEGATIVE (NEGATIVE) 03/26/20 Range/Units 18:10 WBC (4.0-11.0) K/uL RBC (4.30-5.90) M/uL Hgb (12.0-16.0) g/dL Hct (36.0-46.0) % MCV (80.0-98.0) fL MCH (27.0-32.0) pg MCHC (31.0-37.0) g/dL RDW Std Deviation (28.0-62.0) fl RDW Coeff of Lety (11.0-15.0) % Plt Count (150-400) K/uL MPV (7.40-12.00) fL Neut % (Auto) (48.0-80.0) % Lymph % (Auto) (16.0-40.0) % [place] % (Auto) (0.0-15.0) % Eos % (Auto) (0.0-7.0) % Baso % (Auto) (0.0-1.5) % Neut # (Auto) (1.4-5.7) K/uL Lymph # (Auto) (0.6-2.4) K/uL [place] # (Auto) (0.0-0.8) K/uL Eos # (Auto) (0.0-0.7) K/uL Baso # (Auto) (0.0-0.1) K/uL Nucleated RBC % /100WBC Nucleated RBCs # K/uL Lactate (0.20-2.00) mmol/L Sodium 143 (136-145) mmol/L Potassium 3.8 (3.5-5.1) mmol/L Chloride 105 (98-107) mmol/L Carbon Dioxide 29.0 (21.0-32.0) mmol/L BUN 11 (7.0-18.0) mg/dL Creatinine 1.0 (0.6-1.0) mg/dL Est Cr Clr Drug Dosing 78.41 mL/min Estimated GFR (MDRD) > 60.0 ml/min Glucose 86 (74-106) mg/dL Calcium 9.3 (8.5-10.1) mg/dL Total Bilirubin 0.2 (0.2-1.0) mg/dL AST 9 L (15-37) IU/L ALT 16 (14-63) IU/L Alkaline Phosphatase 86 (46-116) U/L Total Protein 8.1 (6.4-8.2) g/dL Albumin 3.6 (3.4-5.0) g/dL Globulin 4.5 H (2.6-4.0) g/dL Albumin/Globulin Ratio 0.8 L (0.9-1.6) Lipase 75 (73-393) U/L Urine HCG, Qual (NEGATIVE) Meds: Medications Generic Name Dose Route Start Last Admin Trade Name Freq PRN Reason Stop Dose Admin Sodium Chloride 10 ml 03/26/20 17:59 03/26/20 18:29 Saline Flush FLUSH 10 ml ASDIRECTED PRN Administration Keep Vein Open Sodium Chloride 2.5 ml 03/26/20 17:59 03/26/20 18:28 Saline Flush FLUSH 2.5 ml ASDIRECTED PRN Administration Keep Vein Open Discontinued Medications Generic Name Dose Route Start Last Admin Trade Name Zohra PRN Reason Stop Dose Admin Sodium Chloride 1,000 mls @ 999 mls/hr 03/26/20 17:59 03/26/20 18:29 Normal Saline IV 03/26/20 18:59 999 mls/hr .Bolus ONE Administration Iopamidol 80 ml 03/26/20 19:15 03/26/20 19:16 Isovue Multipack-370 (76%) IVPUSH 03/26/20 19:16 80 ml ONETIME STA Administration Magnesium Citrate 150 ml 03/26/20 19:53 Citrate Of Magnesia PO 03/26/20 19:54 ONETIME ONE Departure - Departure Time of Disposition: 19:55 Sepsis Event Note (ED) - Focused Exam Vital Signs: Vital Signs Temp Pulse Resp BP Pulse Ox 03/26/20 17:50 98.0 F 70 18 146/94 H 99 - My Orders Last 24 Hours: My Active Orders 03/26/20 19:54 Enema [RC] ASDIRECTED - Assessment/Plan Last 24 Hours: My Active Orders 03/26/20 19:54 Enema [RC] ASDIRECTED
[2020-03-26] MEDS ORDERED: Sodium Chloride 0.9% 10 ML Syringe FLUSH PRN (17:59)
[2020-03-26] MEDS ORDERED: Sodium Chloride 0.9% 2.5 ML Syringe FLUSH PRN (17:59)
[2020-03-26] MEDS ORDERED: Sodium Chloride 0.9% 1,000 ML IV ONE (17:59)
[2020-03-26 18:40] LABS: BLOOD UREA NITROGEN,BUN 11 mg/dL (7.0-18.0); CHLORIDE,CL 105 mmol/L (98-107); GLUCOSE RANDOM 86 mg/dL (74-106); LIPASE 75 U/L (73-393); POTASSIUM,K 3.8 mmol/L (3.5-5.1); SODIUM,NA 143 mmol/L (136-145)
[2020-03-26] MEDS ORDERED: Iopamidol 755 MG/ML 500 ML Multipack Bottle IVPUSH STA (19:15)
--- NOTE | 2020-03-26 19:36 | CT ---
Indication: Upper abdominal Pain Technique: Volumetric multidetector CT images of the abdomen and pelvis were obtained after the administration of intravenous contrast. 80 cc Isovue 370 low osmolar intravenous contrast Comparison: None available. Findings: The lung bases are clear. The liver is normal in attenuation without intrahepatic biliary ductal dilatation. The portal vein is patent. The gallbladder is unremarkable without evidence of radiopaque calculus. There is no significant common biliary ductal dilatation or abrupt cut off. The spleen is normal in enhancement and size. The stomach and duodenum are grossly unremarkable. The pancreas is normal in enhancement without significant atrophy. The adrenal glands are unremarkable. The kidneys demonstrate preserved corticomedullary differentiation without evidence of obstructive uropathy. There is moderate stool seen throughout the colon with colonic diverticulosis. There is no significant pericolonic inflammatory change however exam is limited due to body habitus and nondistention of the colon. The appendix is unremarkable. There is no significant mesenteric, retroperitoneal, or pelvic sidewall lymph nodes. The aorta is nonaneurysmal. There is no significant atherosclerotic disease appreciated. The solid pelvic viscera are grossly unremarkable. There is no free fluid or free air. There is mild diastasis of the rectus musculature with likely a fat containing umbilical hernia. The lumbar vertebral body heights are grossly maintained in satisfactory alignment without evidence of displaced fracture, lytic or blastic lesion. Impression: Moderate nonspecific stool seen throughout the colon. Minimal colonic diverticulosis of the sigmoid colon which is moderately decompressed. Low-grade inflammatory changes would be difficult to exclude. Demonstration of a somewhat contracted appearing gallbladder. Please note that all CT scans at this facility use dose modulation, iterative reconstruction, and/or weight-based dosing when appropriate to reduce radiation dose to as low as reasonably achievable. Dictated by Philip Vogt MD @ Mar 26 2020 7:24PM Signed by Dr. Philip Vogt @ Mar 26 2020 7:35PM
[2020-03-26] MEDS ORDERED: Magnesium Citrate Solution 296 ML Bottle PO ONE (19:53)
== END 2020-03-26 20:46 | disposition home or self-care (01) ==
LOC: MW.ED 17:35
DX: K59.00 Constipation, unspecified (principal); Z98.890 Other specified postprocedural states
CPT/HCPCS: 36415; 74177; 80053; 81025; 83605; 83690; 85025; 99284; A9270; J7030; Q9967; 99283

== ENCOUNTER 2020-11-17 00:49 | Emergency (ER) | payer OTHER ==
--- NOTE | 2020-11-17 01:18 | EDM.PDOC ---
ED HPI GENERAL MEDICAL PROBLEM - General Chief Complaint: Genitourinary Problem Stated Complaint: uti Time Seen by Provider: 11/17/20 00:54 Source of Information: Reports: Patient - History of Present Illness INITIAL COMMENTS - FREE TEXT/NARRATIVE: 29-year-old female presents to the emergency department complaining of painful urination or blood in the urine and difficulty getting the urine out since 8 PM tonight. No history of UTI. Some right flank pain. No fever or vomiting. No vaginal bleeding or discharge. No exacerbating relieving factors Back Pain Score (Numeric/FACES): 6 - Related Data Allergies Allergy/AdvReac Type Severity Reaction Status Date / Time No Known Allergies Allergy Verified 11/17/20 01:07 Home Meds: Home Meds Pnv No.95/Ferrous Fum/Folic AC [ Caplet] 1 each PO 11/17/20 [History] cephALEXin [Keflex] 500 mg PO QID #40 cap 11/17/20 [Rx] Past Medical History - Past Health History Medical/Surgical History: Denies Medical/Surgical History HEENT History: Reports: None Cardiovascular History: Reports: High Cholesterol Respiratory History: Reports: None Gastrointestinal History: Reports: None Genitourinary History: Reports: None INVENTORY COORDINATOR History: Reports: Musculoskeletal History: Reports: None Neurological History: Reports: Vertigo Psychiatric History: Reports: None Endocrine/Metabolic History: Reports: None Hematologic History: Reports: None Immunologic History: Reports: None Oncologic (Cancer) History: Reports: None Dermatologic History: Reports: None - Infectious Disease History Infectious Disease History: Reports: Measles - Past Surgical History Head Surgeries/Procedures: Reports: None HEENT Surgical History: Reports: None Cardiovascular Surgical History: Reports: None Respiratory Surgical History: Reports: None GI Surgical History: Reports: None Female Surgical History: Reports: None Endocrine Surgical History: Reports: None Neurological Surgical History: Reports: None Musculoskeletal Surgical History: Reports: None Oncologic Surgical History: Reports: None Dermatological Surgical History: Reports: None Social & Family History - Family History Family Medical History: No Pertinent Family History - Tobacco Use Second Hand Smoke Exposure: No - Caffeine Use Caffeine Use: Reports: None - Recreational Drug Use Recreational Drug Use: No ED ROS GENERAL - Review of Systems Review Of Systems: See Below Constitutional: Denies: Fever Respiratory: Reports: No Symptoms Cardiovascular: Reports: No Symptoms GI/Abdominal: Reports: Abdominal Pain : Reports: Dysuria, Flank Pain Musculoskeletal: Reports: No Symptoms Skin: Reports: No Symptoms Neurological: Reports: No Symptoms ED EXAM, GENERAL - Physical Exam Exam: See Below Free Text/Narrative:: CONSTITUTIONAL: well appearing in no acute distress SKIN: dry, and intact without rash HENT: Normocephalic, atraumatic, NECK: normal range of motion. GI: Some mild suprapubic tenderness. Patient points to the right flank with there is pain but there is no reproducible tenderness PULMONARY: normal chest rise and fall, no respiratory distress or stridor NEUROLOGIC: normal speech, moves all extremities, grossly non-focal MUSCULOSKELETAL: no gross deformities, atraumatic PSYCHIATRIC: normal mood and affect Course - Vital Signs Text/Narrative:: Ventral diagnosis UTI, pyelonephritis, appendicitis, kidney stone, miscarriage, other Patient presents as outlined above. Patient with evidence of UTI. There was some complaints of right flank tenderness but no reproducible tenderness. Nonetheless patient will be given a more lengthy course of antibiotics with strict return precautions and INVENTORY COORDINATOR follow-up early this coming week Last Recorded V/S: Last Vital Signs Temp 36.4 C 11/17/20 01:02 Pulse 83 11/17/20 01:02 Resp 20 11/17/20 01:02 BP 127/80 11/17/20 01:02 Pulse Ox 100 11/17/20 01:02 - Orders/Labs/Meds Orders: Active Orders 24 hr Category Date Time Status CULTURE URINE [MREF] Stat Lab 11/17/20 01:16 Received Labs: Laboratory Tests 11/17/20 11/17/20 11/17/20 Range/Units 01:16 01:16 02:05 WBC 8.36 (4.0-11.0) K/uL RBC 3.84 L (4.30-5.90) M/uL Hgb 11.2 L (12.0-16.0) g/dL Hct 31.2 L (36.0-46.0) % MCV 81.3 (80.0-98.0) fL MCH 29.2 (27.0-32.0) pg MCHC 35.9 (31.0-37.0) g/dL RDW Std Deviation 38.0 (28.0-62.0) fl RDW Coeff of Lety 13 (11.0-15.0) % Plt Count 238 (150-400) K/uL MPV 11.00 (7.40-12.00) fL Neut % (Auto) 61.4 (48.0-80.0) % Lymph % (Auto) 30.5 (16.0-40.0) % [place] % (Auto) 6.9 (0.0-15.0) % Eos % (Auto) 1.0 (0.0-7.0) % Baso % (Auto) 0.2 (0.0-1.5) % Neut # (Auto) 5.1 (1.4-5.7) K/uL Lymph # (Auto) 2.6 H (0.6-2.4) K/uL [place] # (Auto) 0.6 (0.0-0.8) K/uL Eos # (Auto) 0.1 (0.0-0.7) K/uL Baso # (Auto) 0.0 (0.0-0.1) K/uL Nucleated RBC % 0.0 /100WBC Nucleated RBCs # 0 K/uL Sodium (136-145) mmol/L Potassium (3.5-5.1) mmol/L Chloride (98-107) mmol/L Carbon Dioxide (21.0-32.0) mmol/L BUN (7.0-18.0) mg/dL Creatinine (0.6-1.0) mg/dL Est Cr Clr Drug Dosing mL/min Estimated GFR (MDRD) ml/min Glucose (74-106) mg/dL Calcium (8.5-10.1) mg/dL Total Bilirubin (0.2-1.0) mg/dL AST (15-37) IU/L ALT (14-63) IU/L Alkaline Phosphatase (46-116) U/L Total Protein (6.4-8.2) g/dL Albumin (3.4-5.0) g/dL Globulin (2.6-4.0) g/dL Albumin/Globulin Ratio (0.9-1.6) Urine Color YELLOW Urine Appearance SLT CLOUDY Urine pH 6.5 (5.0-8.0) Ur Specific [place] 1.020 (1.001-1.035) Urine Protein NEGATIVE (NEGATIVE) mg/dL Urine Glucose (UA) NEGATIVE (NEGATIVE) mg/dL Urine Ketones NEGATIVE (NEGATIVE) mg/dL Urine Occult Blood LARGE H (NEGATIVE) Urine Nitrite NEGATIVE (NEGATIVE) Urine Bilirubin NEGATIVE (NEGATIVE) Urine Urobilinogen 0.2 (<2.0) EU/dL Ur Leukocyte Esterase LARGE H (NEGATIVE) Urine RBC 20-30 (0-2/HPF) Urine WBC 30-40 (0-5/HPF) Ur Epithelial Cells FEW (NONE-FEW) Urine Bacteria 1+ H (NEGATIVE) Urine HCG, Qual POSITIVE (NEGATIVE) 11/17/20 Range/Units 02:05 WBC (4.0-11.0) K/uL RBC (4.30-5.90) M/uL Hgb (12.0-16.0) g/dL Hct (36.0-46.0) % MCV (80.0-98.0) fL MCH (27.0-32.0) pg MCHC (31.0-37.0) g/dL RDW Std Deviation (28.0-62.0) fl RDW Coeff of Lety (11.0-15.0) % Plt Count (150-400) K/uL MPV (7.40-12.00) fL Neut % (Auto) (48.0-80.0) % Lymph % (Auto) (16.0-40.0) % [place] % (Auto) (0.0-15.0) % Eos % (Auto) (0.0-7.0) % Baso % (Auto) (0.0-1.5) % Neut # (Auto) (1.4-5.7) K/uL Lymph # (Auto) (0.6-2.4) K/uL [place] # (Auto) (0.0-0.8) K/uL Eos # (Auto) (0.0-0.7) K/uL Baso # (Auto) (0.0-0.1) K/uL Nucleated RBC % /100WBC Nucleated RBCs # K/uL Sodium 136 (136-145) mmol/L Potassium 3.7 (3.5-5.1) mmol/L Chloride 100 (98-107) mmol/L Carbon Dioxide 26.7 (21.0-32.0) mmol/L BUN 7 (7.0-18.0) mg/dL Creatinine 0.8 (0.6-1.0) mg/dL Est Cr Clr Drug Dosing 79.00 mL/min Estimated GFR (MDRD) > 60.0 ml/min Glucose 93 (74-106) mg/dL Calcium 9.0 (8.5-10.1) mg/dL Total Bilirubin 0.2 (0.2-1.0) mg/dL AST 11 L (15-37) IU/L ALT 14 (14-63) IU/L Alkaline Phosphatase 95 (46-116) U/L Total Protein 7.0 (6.4-8.2) g/dL Albumin 2.8 L (3.4-5.0) g/dL Globulin 4.2 H (2.6-4.0) g/dL Albumin/Globulin Ratio 0.7 L (0.9-1.6) Urine Color Urine Appearance Urine pH (5.0-8.0) Ur Specific [place] (1.001-1.035) Urine Protein (NEGATIVE) mg/dL Urine Glucose (UA) (NEGATIVE) mg/dL Urine Ketones (NEGATIVE) mg/dL Urine Occult Blood (NEGATIVE) Urine Nitrite (NEGATIVE) Urine Bilirubin (NEGATIVE) Urine Urobilinogen (<2.0) EU/dL Ur Leukocyte Esterase (NEGATIVE) Urine RBC (0-2/HPF) Urine WBC (0-5/HPF) Ur Epithelial Cells (NONE-FEW) Urine Bacteria (NEGATIVE) Urine HCG, Qual (NEGATIVE) Meds: Medications Discontinued Medications Generic Name Dose Route Start Last Admin Trade Name Freq PRN Reason Stop Dose Admin Ceftriaxone Sodium/Dextrose 1 50 mls @ 100 mls/hr 11/17/20 01:59 11/17/20 02:05 gm/ Premix IV 11/17/20 02:28 100 mls/hr ONETIME ONE Administration Departure - Departure Time of Disposition: 02:36 Disposition: Home, Self-Care 01 Condition: Good Clinical Impression: UTI, Urinary tract infectious disease - Discharge Information Prescriptions: cephALEXin [Keflex] 500 mg PO QID #40 cap Instructions: Urinary Tract Infection, Adult Referrals: Srikanth Swift PROCESSES CHEMICAL DESIGN ENGINEER [Primary Care Provider] - Forms: ED Department Discharge Additional Instructions: Take antibiotics as prescribed. Return for any increasing abdominal pain, any increasing back pain or vomiting or fever or change or worsening condition or lack of improvement. Please follow-up with your OB-SURG RN doctor early this coming week for reevaluation The following information is given to patients seen in the emergency department who are being discharged to home. This information is to outline your options for follow-up care. We provide all patients seen in our emergency department with a follow-up referral. The need for follow-up, as well as the timing and circumstances, are variable d epending upon the specifics of your emergency department visit. If you don't have a primary care physician on staff, we will provide you with a referral. We always advise you to contact your personal physician following an emergency department visit to inform them of the circumstance of the visit and for follow-up with them and/or the need for any referrals to a consulting specialist. The emergency department will also refer you to a specialist when appropriate. This referral assures that you have the opportunity for follow-up care with a specialist. All of these measure are taken in an effort to provide you with optimal care, which includes your follow-up. Primary care clinics in the area: [facility] - Primary Care [address] [place] [address] [place] [address] Under all circumstances we always encourage you to contact your private physician who remains a resource for coordinating your care. When calling for follow-up care, please make the office aware that this follow-up is from your recent emergency room visit. If for any reason you are refused follow-up, please contact the [facility] Emergency Department at and asked to speak to the emergency department charge nurse. Sepsis Event Note (ED) - Evaluation Sepsis Screening Result: No Definite Risk - Focused Exam Vital Signs: Vital Signs Temp Pulse Resp BP Pulse Ox 11/17/20 01:02 36.4 C 83 20 127/80 100 - My Orders Last 24 Hours: My Active Orders 11/17/20 01:16 CULTURE URINE [MREF] Stat - Assessment/Plan Last 24 Hours: My Active Orders 11/17/20 01:16 CULTURE URINE [MREF] Stat
[2020-11-17] MEDS ORDERED: cefTRIAXone 1 GM in Premix Bag 1 BAG IV ONE (01:59)
[2020-11-17 02:58] LABS: BLOOD UREA NITROGEN,BUN 7 mg/dL (7.0-18.0); CARBON DIOXIDE,CO2 26.7 mmol/L (21.0-32.0); CHLORIDE,CL 100 mmol/L (98-107); GLUCOSE RANDOM 93 mg/dL (74-106); POTASSIUM,K 3.7 mmol/L (3.5-5.1); SODIUM,NA 136 mmol/L (136-145)
== END 2020-11-17 03:20 | disposition home or self-care (01) ==
LOC: MW.ED 00:49
DX: N39.0 Urinary tract infection, site not specified (principal)
CPT/HCPCS: 36415; 80053; 81001; 81025; 85025; 87086; 87088; 87186; 96365; 99284; J0696

== ENCOUNTER 2020-12-08 18:56 | Emergency (ER) | payer OTHER ==
--- NOTE | 2020-12-08 21:06 | EDM.PDOC ---
ED HPI GENERAL MEDICAL PROBLEM - General Chief Complaint: General Stated Complaint: sob Time Seen by Provider: 12/08/20 20:46 Source of Information: Reports: Patient History Limitations: Reports: No Limitations - History of Present Illness INITIAL COMMENTS - FREE TEXT/NARRATIVE: Patient is a 30-year-old female who was also 16 weeks presents today for shortness of breath. She tested positive for Covid earlier today. She went home and spiked a fever and felt more short of breath and told her CLINICAL VETERINARIAN doctor who told her to come in to be scheduled for possible antibodies. Patient is satting 99% on room air does not seem to be any respiratory distress looks comfortable. Patient denies any nausea vomiting states he still tolerating p.o. has no abdominal pain no vaginal bleeding or discharge. - Related Data Allergies Allergy/AdvReac Type Severity Reaction Status Date / Time No Known Allergies Allergy Verified 12/08/20 19:56 Home Meds: Home Meds Pnv No.95/Ferrous Fum/Folic AC [ Caplet] 1 each PO DAILY 11/17/20 [History] Past Medical History - Past Health History Medical/Surgical History: Denies Medical/Surgical History HEENT History: Reports: None Cardiovascular History: Reports: High Cholesterol Respiratory History: Reports: None Gastrointestinal History: Reports: None Genitourinary History: Reports: None SEXUAL ABUSE COUNSELLOR History: Reports: Musculoskeletal History: Reports: None Neurological History: Reports: Vertigo Psychiatric History: Reports: None Endocrine/Metabolic History: Reports: None Hematologic History: Reports: None Immunologic History: Reports: None Oncologic (Cancer) History: Reports: None Dermatologic History: Reports: None - Infectious Disease History Infectious Disease History: Reports: Measles - Past Surgical History Head Surgeries/Procedures: Reports: None HEENT Surgical History: Reports: None Cardiovascular Surgical History: Reports: None Respiratory Surgical History: Reports: None GI Surgical History: Reports: None Female Surgical History: Reports: None Endocrine Surgical History: Reports: None Neurological Surgical History: Reports: None Musculoskeletal Surgical History: Reports: None Oncologic Surgical History: Reports: None Dermatological Surgical History: Reports: None Social & Family History - Family History Family Medical History: No Pertinent Family History - Tobacco Use Tobacco Use Status *Q: Never Tobacco User - Caffeine Use Caffeine Use: Reports: None - Recreational Drug Use Recreational Drug Use: No ED ROS GENERAL - Review of Systems Review Of Systems: See Below Constitutional: Reports: Fever HEENT: Reports: No Symptoms Respiratory: Reports: Shortness of Breath Cardiovascular: Reports: No Symptoms Endocrine: Reports: No Symptoms GI/Abdominal: Reports: No Symptoms : Reports: No Symptoms Musculoskeletal: Reports: No Symptoms Skin: Reports: No Symptoms Neurological: Reports: No Symptoms Psychiatric: Reports: No Symptoms Hematologic/Lymphatic: Reports: No Symptoms Immunologic: Reports: No Symptoms ED EXAM, GENERAL - Physical Exam Exam: See Below Exam Limited By: No Limitations General Appearance: Alert, WD/WN, No Apparent Distress Ears: Normal External Exam Nose: Normal Inspection Throat/Mouth: Normal Inspection Head: Atraumatic, Normocephalic Respiratory/Chest: No Respiratory Distress, Lungs Clear, Normal Breath Sounds Cardiovascular: Normal Peripheral Pulses, Regular Rate, Rhythm, No Edema GI/Abdominal: Normal Bowel Sounds, Soft, Non-Tender Extremities: Normal Inspection, Normal Range of Motion Neurological: Alert, Oriented, Normal Cognition, Normal Gait #1 Interpretation EKG Date: 12/08/20 Time: 20:56 Rhythm: Other (sinus tachy) Rate (Beats/Min): 134 ST-T: Normal Course - Vital Signs Last Recorded V/S: Last Vital Signs Temp 99.8 F 12/08/20 19:57 Pulse 124 H 12/08/20 22:07 Resp 16 12/08/20 19:57 BP 113/63 12/08/20 19:57 Pulse Ox 100 12/08/20 22:07 - Orders/Labs/Meds Orders: Active Orders 24 hr Category Date Time Status UA W/SHANTELL RFLX IF INDICATED [URIN] Stat Lab 12/08/20 22:24 Stop Req Labs: Laboratory Tests 12/08/20 12/08/20 12/08/20 Range/Units 19:50 20:51 20:51 WBC 8.42 (4.0-11.0) K/uL RBC 3.89 L (4.30-5.90) M/uL Hgb 11.2 L (12.0-16.0) g/dL Hct 32.2 L (36.0-46.0) % MCV 82.8 (80.0-98.0) fL MCH 28.8 (27.0-32.0) pg MCHC 34.8 (31.0-37.0) g/dL RDW Std Deviation 36.2 (28.0-62.0) fl RDW Coeff of Lety 12 (11.0-15.0) % Plt Count 226 (150-400) K/uL MPV 11.50 (7.40-12.00) fL Neut % (Auto) 85.1 H (48.0-80.0) % Lymph % (Auto) 5.1 L (16.0-40.0) % [place] % (Auto) 9.6 (0.0-15.0) % Eos % (Auto) 0.1 (0.0-7.0) % Baso % (Auto) 0.1 (0.0-1.5) % Neut # (Auto) 7.2 H (1.4-5.7) K/uL Lymph # (Auto) 0.4 L (0.6-2.4) K/uL [place] # (Auto) 0.8 (0.0-0.8) K/uL Eos # (Auto) 0.0 (0.0-0.7) K/uL Baso # (Auto) 0.0 (0.0-0.1) K/uL Sodium 133 L (136-145) mmol/L Potassium 3.6 (3.5-5.1) mmol/L Chloride 96 L (98-107) mmol/L Carbon Dioxide 25.1 (21.0-32.0) mmol/L BUN 6 L (7.0-18.0) mg/dL Creatinine 0.8 (0.6-1.0) mg/dL Est Cr Clr Drug Dosing 85.83 mL/min Estimated GFR (MDRD) > 60.0 ml/min Glucose 108 H (74-106) mg/dL Calcium 10.0 (8.5-10.1) mg/dL Total Bilirubin 0.2 (0.2-1.0) mg/dL AST 13 L (15-37) IU/L ALT 17 (14-63) IU/L Alkaline Phosphatase 113 (46-116) U/L Troponin I < 0.050 (0.000-0.056) ng/mL Total Protein 7.8 (6.4-8.2) g/dL Albumin 3.1 L (3.4-5.0) g/dL Globulin 4.7 H (2.6-4.0) g/dL Albumin/Globulin Ratio 0.7 L (0.9-1.6) HCG, Quant mIU/mL Urine Color YELLOW Urine Appearance CLEAR Urine pH 6.0 (5.0-8.0) Ur Specific [place] 1.020 (1.001-1.035) Urine Protein NEGATIVE (NEGATIVE) mg/dL Urine Glucose (UA) NEGATIVE (NEGATIVE) mg/dL Urine Ketones NEGATIVE (NEGATIVE) mg/dL Urine Occult Blood NEGATIVE (NEGATIVE) Urine Nitrite NEGATIVE (NEGATIVE) Urine Bilirubin NEGATIVE (NEGATIVE) Urine Urobilinogen 0.2 (<2.0) EU/dL Ur Leukocyte Esterase NEGATIVE (NEGATIVE) 12/08/20 Range/Units 20:51 WBC (4.0-11.0) K/uL RBC (4.30-5.90) M/uL Hgb (12.0-16.0) g/dL Hct (36.0-46.0) % MCV (80.0-98.0) fL MCH (27.0-32.0) pg MCHC (31.0-37.0) g/dL RDW Std Deviation (28.0-62.0) fl RDW Coeff of Lety (11.0-15.0) % Plt Count (150-400) K/uL MPV (7.40-12.00) fL Neut % (Auto) (48.0-80.0) % Lymph % (Auto) (16.0-40.0) % [place] % (Auto) (0.0-15.0) % Eos % (Auto) (0.0-7.0) % Baso % (Auto) (0.0-1.5) % Neut # (Auto) (1.4-5.7) K/uL Lymph # (Auto) (0.6-2.4) K/uL [place] # (Auto) (0.0-0.8) K/uL Eos # (Auto) (0.0-0.7) K/uL Baso # (Auto) (0.0-0.1) K/uL Sodium (136-145) mmol/L Potassium (3.5-5.1) mmol/L Chloride (98-107) mmol/L Carbon Dioxide (21.0-32.0) mmol/L BUN (7.0-18.0) mg/dL Creatinine (0.6-1.0) mg/dL Est Cr Clr Drug Dosing mL/min Estimated GFR (MDRD) ml/min Glucose (74-106) mg/dL Calcium (8.5-10.1) mg/dL Total Bilirubin (0.2-1.0) mg/dL AST (15-37) IU/L ALT (14-63) IU/L Alkaline Phosphatase (46-116) U/L Troponin I (0.000-0.056) ng/mL Total Protein (6.4-8.2) g/dL Albumin (3.4-5.0) g/dL Globulin (2.6-4.0) g/dL Albumin/Globulin Ratio (0.9-1.6) HCG, Quant 08776.0 mIU/mL Urine Color Urine Appearance Urine pH (5.0-8.0) Ur Specific [place] (1.001-1.035) Urine Protein (NEGATIVE) mg/dL Urine Glucose (UA) (NEGATIVE) mg/dL Urine Ketones (NEGATIVE) mg/dL Urine Occult Blood (NEGATIVE) Urine Nitrite (NEGATIVE) Urine Bilirubin (NEGATIVE) Urine Urobilinogen (<2.0) EU/dL Ur Leukocyte Esterase (NEGATIVE) - Re-Assessments/Exams Free Text/Narrative Re-Assessment/Exam: 12/08/20 21:[address] Francisco came down and saw patient in ED. Patient was sent here to have the antibodies but she has to get that done the morning she did not offer the ED. Again we spoke to patient she is also nervous about her heart rate being 130s and CLINICAL VETERINARIAN feels that she has multiple reasons to have elevated heart rate. Patient is okay with getting a CT PE but at this time would like to wait until after the antibiotic and see if he has better instead of doing the study patient has no leg swelling no recent travels. We will discharge patient home and she will have antibiotics in the morning and will be given to return precautions. Departure - Departure Time of Disposition: 22:27 Disposition: Home, Self-Care 01 Condition: Good Clinical Impression: General medical exam - Discharge Information *PRESCRIPTION DRUG MONITORING PROGRAM REVIEWED*: Not Applicable *COPY OF PRESCRIPTION DRUG MONITORING REPORT IN PATIENT ELIAS: Not Applicable Instructions: Care Referrals: Srikanth Swift DIET SUPERVISOR [Primary Care Provider] - Forms: ED Department Discharge Additional Instructions: The following information is given to patients seen in the emergency department who are being discharged to home. This information is to outline your options for follow-up care. We provide all patients seen in our emergency department with a follow-up referral. The need for follow-up, as well as the timing and circumstances, are variable depending upon the specifics of your emergency department visit. If you don't have a primary care physician on staff, we will provide you with a referral. We always advise you to contact your personal physician following an emergency department visit to inform them of the circumstance of the visit and for follow-up with them and/or the need for any referrals to a consulting specialist. The emergency department will also refer you to a specialist when appropriate. This referral assures that you have the opportunity for follow-up care with a specialist. All of these measure are taken in an effort to provide you with optimal care, which includes your follow-up. Under all circumstances we always encourage you to contact your private physician who remains a resource for coordinating your care. When calling for follow-up care, please make the office aware that this follow-up is from your recent emergency room visit. If for any reason you are refused follow-up, please contact the [facility] Emergency Department at and asked to speak to the emergency department charge nurse. Please follow up with your primary care physician. If you do not have a primary care physician, see below: [facility] [address] [place] [id number] [facility] [address] [place] [phone] You were seen today to obtain the antibiotics as he had a positive Covid test. We did not get that in the ED but we have for the paperwork out and they will call you to morning to schedule to have antibodies done hopefully tomorrow. We spoke to about having a fast heart rate with his shortness of breath and has concerns about having pulmonary emboli for your lungs. At this time we discussed to hold off on the CAT scan however if it becomes worse again worsening chest pain please return to ED immediately and we will perform the test can otherwise continue to your regular schedule appointment. Sepsis Event Note (ED) - Evaluation Sepsis Screening Result: No Definite Risk - Focused Exam Vital Signs: Vital Signs Temp Pulse Resp BP Pulse Ox 12/08/20 22:07 124 H 100 12/08/20 19:57 99.8 F 135 H 16 113/63 100 - My Orders Last 24 Hours: My Active Orders 12/08/20 22:24 UA W/SHANTELL RFLX IF INDICATED [URIN] Stat - Assessment/Plan Last 24 Hours: My Active Orders 12/08/20 22:24 UA W/SHANTELL RFLX IF INDICATED [URIN] Stat Plan: Patient is a 30-year-old female 16 weeks positive for Covid comes in today for increasing shortness of breath. He does say 99% on room air in no respiratory distress. But she is tachycardia to the 130s EKG is sinus tach. Will obtain labs x-ray give IV fluids and reassess patient.
[2020-12-08 21:30] LABS: BLOOD UREA NITROGEN,BUN 6 mg/dL (7.0-18.0); CARBON DIOXIDE,CO2 25.1 mmol/L (21.0-32.0); CHLORIDE,CL 96 mmol/L (98-107); GLUCOSE RANDOM 108 mg/dL (74-106); POTASSIUM,K 3.6 mmol/L (3.5-5.1); SODIUM,NA 133 mmol/L (136-145)
== END 2020-12-08 22:30 | disposition home or self-care (01) ==
LOC: MW.ED 18:56
DX: O99.512 Diseases of the respiratory system complicating pregnancy, second trimester (principal); O99.412 Diseases of the circulatory system complicating pregnancy, second trimester; U07.1 COVID-19; E78.00 Pure hypercholesterolemia, unspecified; Z3A.16 16 weeks gestation of pregnancy
CPT/HCPCS: 36415; 80053; 81003; 84484; 84702; 85025; 99285-25

== ENCOUNTER 2021-05-04 15:38 | Inpatient (IN) | payer OTHER ==
[2021-05-04] MEDS ORDERED: Sodium Chloride 0.9% 20 ML SDV IV PRN (16:20)
[2021-05-04] MEDS ORDERED: Sodium Chloride 0.9% 2.5 ML Syringe FLUSH PRN (16:20)
[2021-05-04] MEDS ORDERED: Citric Acid/Sodium Citrate Solution 30 ML Cup PO ONE (16:20)
[2021-05-04] MEDS ORDERED: Sodium Chloride 0.9% 10 ML Syringe FLUSH PRN (16:20)
[2021-05-04] MEDS ORDERED: ceFAZolin 2 GM in Premix Bag 1 BAG IV ONE (16:20)
[2021-05-04] MEDS ORDERED: Oxytocin/0.9 % Sodium Chloride 30 UNIT/500 ML BAG IV SCH (16:30)
[2021-05-04] MEDS: Lactated Ringers 1,000 ML IV SCH ×2 (17:07→17:09)
[2021-05-04] MEDS ORDERED: Ropivacaine 0.5% 5 MG/ML 30 ML SDV ONE ×2 (17:40→19:24)
[2021-05-04] MEDS ORDERED: Morphine PF 10 MG/10 ML SDV ONE (17:40)
[2021-05-04] MEDS ORDERED: Oxytocin 10 Units/1 ML SDV ONE (17:40)
[2021-05-04] MEDS ORDERED: Ondansetron 4 MG/2 ML SDV ONE (17:40)
[2021-05-04] MEDS ORDERED: fentaNYL 100 MCG/2 ML SDV ONE (17:40)
[2021-05-04] MEDS ORDERED: Dexamethasone 4 MG/ML 5 ML MDV ONE (17:40)
[2021-05-04] MEDS ORDERED: ceFAZolin 1 GM Vial ONE (17:41)
[2021-05-04] MEDS ORDERED: Lidocaine 2% 5 ML SDV ONE (17:45)
[2021-05-04] MEDS ORDERED: Metoclopramide 10 MG/2 ML SDV IVPUSH PRN (18:01)
[2021-05-04] MEDS ORDERED: HYDROmorphone 1 MG/ML Syringe IVPUSH PRN (18:01)
[2021-05-04] MEDS ORDERED: Acetaminophen/oxyCODONE 325-5 MG Tab PO PRN ×2 (18:01→19:50)
[2021-05-04] MEDS ORDERED: diphenhydrAMINE 50 MG/ML SDV IVPUSH PRN ×2 (18:01→19:50)
[2021-05-04] MEDS ORDERED: ePHEDrine 50 MG/ML SDV IVPUSH PRN (18:01)
[2021-05-04] MEDS ORDERED: Morphine 4 MG/ML VIAL IVPUSH PRN (18:01)
[2021-05-04] MEDS ORDERED: Ondansetron 4 MG/2 ML SDV IVPUSH PRN ×3 (18:01→19:50)
[2021-05-04] MEDS ORDERED: Naloxone 0.4 MG/ML SDV IVPUSH PRN (18:01)
[2021-05-04] MEDS ORDERED: fentaNYL 100 MCG/2 ML SDV IVPUSH PRN ×2 (18:01)
[2021-05-04] MEDS ORDERED: Albuterol 0.083% 2.5 MG/3 ML Neb Soln NEB PRN (18:01)
[2021-05-04] MEDS ORDERED: Bisacodyl 10 MG Supp RECTAL PRN (19:50)
[2021-05-04] MEDS ORDERED: Misoprostol 200 MCG Tab RECTAL PRN (19:50)
[2021-05-04] MEDS ORDERED: Methylergonovine 0.2 MG/1 ML Amp IM PRN (19:50)
[2021-05-04] MEDS ORDERED: Tranexamic Acid 1,000 MG in Sodium Chloride 0.9% 100 ML IV PRN (19:50)
[2021-05-04] MEDS ORDERED: Lanolin 100% Cream 7 GM Tube TOP PRN (19:50)
[2021-05-04] MEDS ORDERED: Lactated Ringers 1,000 ML IV SCH (20:00)
[2021-05-04] MEDS ORDERED: Ketorolac 30 MG/ML SDV ONE (20:31)
[2021-05-04] MEDS: Ketorolac 30 MG/ML SDV IVPUSH SCH (20:35)
[2021-05-04] MEDS: Docusate Sodium 100 MG Cap PO SCH (21:33)
[2021-05-04] MEDS: Acetaminophen 1,000 MG in Premix Bag 1 BAG IV SCH (23:45)
[2021-05-05] MEDS: Ketorolac 30 MG/ML SDV IVPUSH SCH ×4 (02:19→21:16)
[2021-05-05] MEDS: Acetaminophen 1,000 MG in Premix Bag 1 BAG IV SCH ×2 (06:11→12:19)
[2021-05-05] MEDS: Docusate Sodium 100 MG Cap PO SCH ×2 (08:20→21:16)
[2021-05-06] MEDS: Ibuprofen 800 MG Tab PO PRN ×3 (03:07→20:20)
[2021-05-06] MEDS: Acetaminophen/oxyCODONE 325-5 MG Tab PO PRN ×2 (06:15→16:07)
[2021-05-06] MEDS: Docusate Sodium 100 MG Cap PO SCH (08:53)
== END 2021-05-06 20:55 | disposition home or self-care (01) | DRG 788 ==
LOC: MW.OB 15:38
PROVIDERS: ADMIT Obstetrics & Gynecology; ATTEND Obstetrics & Gynecology
PROC: 10D00Z1 Extraction of Products of Conception, Low, Open Approach (ICD-10-PCS; principal; 2021-05-04)
DX: O34.211 Maternal care for low transverse scar from previous cesarean delivery (principal); Z37.0 Single live birth; O99.284 Endocrine, nutritional and metabolic diseases complicating childbirth; E78.00 Pure hypercholesterolemia, unspecified; O36.5930 Maternal care for other known or suspected poor fetal growth, third trimester, not applicable or unspecified; Z20.822 Contact with and (suspected) exposure to COVID-19; Z3A.38 38 weeks gestation of pregnancy
CPT/HCPCS: 01961; 36415; 59025; 64450; 76942; 85014; 85018; 85027; 86592; 86850; 86900; 86901; A9270-GY; J0131; J0690; J1100; J1200; J1885; J2274; J2370; J2405; J2590; J2795; J3010; J7120; U0002

== ENCOUNTER 2021-08-23 17:17 | Emergency (ER) | payer BC, OTHER ==
[2021-08-23] MEDS ORDERED: Ondansetron 4 MG/2 ML SDV IVPUSH ONE (18:09)
[2021-08-23] MEDS ORDERED: Sodium Chloride 0.9% 1,000 ML IV ONE (18:09)
[2021-08-23 18:42] LABS: CORONAVIRUS COVID-19 NAA NEGATIVE (NEGATIVE); INFLUENZA A NAA NEGATIVE (NEGATIVE); INFLUENZA B NAA NEGATIVE (NEGATIVE)
[2021-08-23 19:45] LABS: BLOOD UREA NITROGEN,BUN 11 mg/dL (7.0-18.0); CARBON DIOXIDE,CO2 30.4 mmol/L (21.0-32.0); CHLORIDE,CL 103 mmol/L (98-107); GLUCOSE RANDOM 78 mg/dL (74-106); POTASSIUM,K 3.3 mmol/L (3.5-5.1); SODIUM,NA 140 mmol/L (136-145)
[2021-08-23 19:59] LABS: ESTIMATED GFR 78 mL/min (>60)
== END 2021-08-23 20:30 | disposition home or self-care (01) ==
LOC: MW.ED 17:17
DX: R42 Dizziness and giddiness (principal); Z20.822 Contact with and (suspected) exposure to COVID-19
CPT/HCPCS: 0240U; 36415; 80053; 81001; 81025; 82947; 85025; 96361; 96374; 99284; J2405; J7030

== ENCOUNTER 2021-11-11 18:04 | Emergency (ER) | payer OTHER, BC | END 2021-11-11 19:51 | disposition left against medical advice (07) | LOC: MW.ED 18:04 | DX: Z53.21 Procedure and treatment not carried out due to patient leaving prior to being seen by health care provider (principal) ==

== ENCOUNTER 2021-12-02 10:00 | Emergency (ER) | payer OTHER, BC ==
[2022-01-10 18:27] LABS: CORONAVIRUS COVID-19 NAA NEGATIVE (NEGATIVE); INFLUENZA A NAA NEGATIVE (NEGATIVE); INFLUENZA B NAA NEGATIVE (NEGATIVE)
== END 2021-12-02 12:00 | disposition home or self-care (01) ==
LOC: MW.ED 10:00
DX: J01.90 Acute sinusitis, unspecified (principal); Z20.822 Contact with and (suspected) exposure to COVID-19
CPT/HCPCS: 0240U; 99283

== ENCOUNTER 2021-12-02 19:18 | Emergency (ER) | payer OTHER, BC ==
[2021-12-02] MEDS ORDERED: Morphine 4 MG/ML Syringe IV ONE (20:02)
[2021-12-02] MEDS ORDERED: Ondansetron 4 MG/2 ML SDV IVPUSH ONE (20:02)
[2021-12-02] MEDS ORDERED: Sodium Chloride 0.9% 1,000 ML IV ONE (20:02)
[2021-12-02] MEDS ORDERED: Iopamidol 755 Mg/ML 100 ML Bottle IV ONE (21:35)
== END 2021-12-02 23:00 | disposition home or self-care (01) ==
LOC: MW.ED 19:18
DX: R10.11 Right upper quadrant pain (principal)
CPT/HCPCS: 74177; 96374; 96375; 99284; J2270; J2405; J7030; Q9967

== ENCOUNTER 2021-12-21 18:38 | Emergency (ER) | payer OTHER, BC ==
[2021-12-21 19:52] LABS: CARBON DIOXIDE,CO2 29.4 mmol/L (21.0-32.0); POTASSIUM,K 3.7 mmol/L (3.5-5.1)
[2021-12-21 21:07] LABS: CORONAVIRUS COVID-19 NAA NEGATIVE (NEGATIVE); INFLUENZA A NAA NEGATIVE (NEGATIVE); INFLUENZA B NAA NEGATIVE (NEGATIVE)
[2021-12-21] MEDS ORDERED: Iopamidol 755 MG/ML 500 ML Multipack Bottle IVPUSH STA (21:07)
== END 2021-12-21 22:02 | disposition home or self-care (01) ==
LOC: MW.ED 18:38
DX: R07.89 Other chest pain (principal); Z20.822 Contact with and (suspected) exposure to COVID-19; Z79.899 Other long term (current) drug therapy
CPT/HCPCS: 0240U; 36415; 71045; 71275; 80053; 83690; 84484; 85025; 85379; 99285; Q9967

== ENCOUNTER 2022-01-30 08:23 | Emergency (ER) | payer OTHER, BC ==
[2022-01-30] MEDS ORDERED: Alum Hydro/Mag Hydro/Simeth XS 15 ML, Lidocaine 2% 5 ML PO ONE ×2 (08:47)
[2022-01-30 10:02] LABS: POTASSIUM,K 3.9 mmol/L (3.5-5.1)
[2022-01-30] MEDS ORDERED: Acetaminophen 325 MG Tab PO ONE (10:09)
[2022-01-30] MEDS ORDERED: Ibuprofen 400 MG Tab PO ONE (10:09)
[2022-01-30] MEDS ORDERED: Ibuprofen 400 MG Tab ONE (10:19)
[2022-01-30] MEDS ORDERED: Morphine 4 MG/ML Syringe IVPUSH ONE (12:28)
[2022-01-30] MEDS ORDERED: Iopamidol 755 MG/ML 500 ML Multipack Bottle IVPUSH ONE (13:34)
== END 2022-01-30 14:54 | disposition home or self-care (01) ==
LOC: MW.ED 08:23
DX: R07.2 Precordial pain (principal)
CPT/HCPCS: 36415; 71045; 71275; 74174; 80053; 84484; 84703; 85025; 85379; 93005; 96374; 99285; A9270; J2270; Q9967

== ENCOUNTER 2022-02-20 05:11 | Emergency (ER) | payer BC, OTHER | END 2022-02-20 05:47 | disposition home or self-care (01) | LOC: MW.ED 05:11 | DX: R30.0 Dysuria (principal); H60.93 Unspecified otitis externa, bilateral; Z79.899 Other long term (current) drug therapy | CPT/HCPCS: 81003; 81025; 99283 ==

== ENCOUNTER 2022-05-07 19:15 | Emergency (ER) | payer OTHER, BC ==
[2022-05-07] MEDS ORDERED: cefTRIAXone 500 MG in Lidocaine 1% 1 ML IM STA (21:19)
== END 2022-05-07 21:55 | disposition home or self-care (01) ==
LOC: MW.ED 19:15
DX: N10 Acute pyelonephritis (principal)
CPT/HCPCS: 81001; 81025; 87086; 96372; 99283; J0696; 99284; J3490

== ENCOUNTER 2022-06-27 12:48 | Emergency (ER) | payer OTHER, BC ==
[2022-06-27] MEDS ORDERED: Acetaminophen 500 MG Tab PO STA (14:27)
[2022-06-27] MEDS ORDERED: Ibuprofen 800 MG Tab PO STA (14:27)
[2022-06-27 14:39] LABS: CORONAVIRUS COVID-19 NAA NEGATIVE (NEGATIVE); INFLUENZA A NAA NEGATIVE (NEGATIVE); INFLUENZA B NAA NEGATIVE (NEGATIVE)
== END 2022-06-27 15:06 | disposition home or self-care (01) ==
LOC: MW.ED 12:48
DX: H66.93 Otitis media, unspecified, bilateral (principal); Z20.822 Contact with and (suspected) exposure to COVID-19
CPT/HCPCS: 0240U; 71046; 87651; 99285; A9270; 99284

== ENCOUNTER 2023-01-08 03:23 | Emergency (ER) | payer SELFPAY ==
[2023-01-08] MEDS ORDERED: Sodium Chloride 0.9% 2.5 ML Syringe FLUSH PRN (03:30)
[2023-01-08] MEDS ORDERED: Sodium Chloride 0.9% 1,000 ML IV ONE (03:30)
[2023-01-08] MEDS ORDERED: Sodium Chloride 0.9% 10 ML Syringe FLUSH PRN (03:30)
[2023-01-08] MEDS ORDERED: Aluminum Hydroxide/Magnesium Hydroxide/Simethicone XS Susp 30 ML Cup PO ONE (03:32)
[2023-01-08] MEDS ORDERED: Pantoprazole 40 MG in Sodium Chloride 0.9% 10 ML IVPUSH ONE (03:33)
[2023-01-08 03:37] LABS: BASOPHILS ABSOLUTE AUTO 0.06 K/uL (0.00-0.20); BASOPHILS PERCENT AUTO 0.9 % (0.0-1.0); EOSINOPHILS ABSOLUTE AUTO 0.14 K/uL (0.00-0.45); EOSINOPHILS PERCENT AUTO 2.1 % (0.0-6.0); HEMOGLOBIN 12.3 g/dL (12.0-16.0); IMMATURE GRAN ABSOLUTE AUTO 0.02 K/uL (0.00-0.05); IMMATURE GRAN PERCENT AUTO 0.3 % (0.0-0.4); LYMPHOCYTES ABSOLUTE AUTO 2.41 K/uL (1.00-4.80); MEAN CORPUSCULAR HEMOGLOBIN 27.6 pg (28.0-32.0); MEAN CORPUSCULAR HGB CONC 35.1 g/dL (32.0-36.0); MEAN CORPUSCULAR VOLUME 78.7 fL (83.0-99.0); MEAN PLATELET VOLUME 11.8 fL (9.4-12.3); MONOCYTES PERCENT AUTO 15.3 % (0.0-8.0); NEUTROPHILS ABSOLUTE AUTO 2.89 K/uL (1.80-7.70); NEUTROPHILS PERCENT AUTO 44.4 % (41.0-71.0); PLATELET COUNT,PLT 237 K/uL (150-400); RED BLOOD CELL COUNT 4.45 M/uL (4.10-5.30); WHITE BLOOD CELL COUNT,WBC 6.52 K/uL (3.9-11.3)
[2023-01-08] MEDS: Ondansetron 4 MG/2 ML SDV IVPUSH ONE ×2 (03:38→03:48)
[2023-01-08 04:11] LABS: A/G RATIO 0.7 (0.9-1.6); ALBUMIN 3.5 g/dL (3.4-5.0); BILIRUBIN TOTAL 0.3 mg/dL (0.2-1.0); CALCIUM 8.9 mg/dL (8.5-10.1); EST CRCL DRUG DOSING (CG) 61.51 mL/min; POTASSIUM,K 3.8 mmol/L (3.5-5.1); PROTEIN TOTAL,TP 8.3 g/dL (6.4-8.2)
[2023-01-08] MEDS ORDERED: Iopamidol 755 MG/ML 500 ML Multipack Bottle IVPUSH STA (04:27)
[2023-01-08] MEDS ORDERED: Aspirin 81 MG Tab.Chew PO ONE (05:37)
== END 2023-01-08 05:52 | disposition home or self-care (01) ==
LOC: MW.ED 03:23
DX: R10.12 Left upper quadrant pain (principal); G45.9 Transient cerebral ischemic attack, unspecified; M62.81 Muscle weakness (generalized); Z79.899 Other long term (current) drug therapy
CPT/HCPCS: 36415; 70450; 71275; 80053; 83690; 84484; 84703; 85025; 85379; 93005; 96361; 96374; 99284; A9270; C9113; J3490; J7030; Q9967; 93010; J2405

== ENCOUNTER 2023-01-25 18:30 | Emergency (ER) | payer SELFPAY | END 2023-01-25 19:05 | disposition left against medical advice (07) | LOC: MW.ED 18:30 | DX: Z53.21 Procedure and treatment not carried out due to patient leaving prior to being seen by health care provider (principal) ==

== ENCOUNTER 2023-05-15 17:10 | Emergency (ER) | payer BC, OTHER | END 2023-05-15 18:20 | disposition home or self-care (01) | LOC: MW.ED 17:10 | DX: F32.A Depression, unspecified (principal); Z75.8 Other problems related to medical facilities and other health care; Z79.899 Other long term (current) drug therapy | CPT/HCPCS: 99283; 99284 ==

== ENCOUNTER 2023-05-18 17:07 | Emergency (ER) | payer OTHER ==
[2023-05-18 17:49] LABS: APPEARANCE,URINE CLEAR; BILIRUBIN,URINE NEGATIVE (NEGATIVE); COLOR,URINE YELLOW; GLUCOSE,URINE NEGATIVE (NEGATIVE); KETONES,URINE NEGATIVE (NEGATIVE); LEUKOCYTE ESTERASE,URINE NEGATIVE (NEGATIVE); NITRITE,URINE NEGATIVE (NEGATIVE); OCCULT BLOOD,URINE NEGATIVE (NEGATIVE); PH,URINE 6.5 (5.0-8.0); PROTEIN,URINE NEGATIVE (NEGATIVE); UROBILINOGEN,URINE 0.2 EU/dL (<2.0)
== END 2023-05-18 18:31 | disposition home or self-care (01) ==
LOC: MW.ED 17:07
DX: R10.9 Unspecified abdominal pain (principal); Z75.8 Other problems related to medical facilities and other health care
CPT/HCPCS: 81003; 81025; 99283; 99284

== ENCOUNTER 2023-05-21 10:31 | Emergency (ER) | payer OTHER ==
[2023-05-21 11:08] LABS: APPEARANCE,URINE SLT CLOUDY; BILIRUBIN,URINE NEGATIVE (NEGATIVE); COLOR,URINE YELLOW; GLUCOSE,URINE NEGATIVE (NEGATIVE); KETONES,URINE NEGATIVE (NEGATIVE); LEUKOCYTE ESTERASE,URINE NEGATIVE (NEGATIVE); NITRITE,URINE NEGATIVE (NEGATIVE); OCCULT BLOOD,URINE NEGATIVE (NEGATIVE); PH,URINE 6.5 (5.0-8.0); PROTEIN,URINE NEGATIVE (NEGATIVE); UROBILINOGEN,URINE 0.2 EU/dL (<2.0)
[2023-05-21 11:18] LABS: AMPHETAMINES SCREEN, URINE NEGATIVE (CUTOFF=500); BARBITURATE SCREEN,URINE NEGATIVE (CUTOFF=200); BENZODIAZEPINES SCREEN,URINE NEGATIVE (CUTOFF=150); BUPRENORPHINE SCREEN,URINE NEGATIVE (CUTOFF=10); METHADONE SCREEN, URINE NEGATIVE (CUTOFF=200); METHAMPHETAMINES SCREEN, URINE NEGATIVE (CUTOFF=500); OXYCODONE SCREEN,URINE NEGATIVE (CUT0FF=100); PCP SCREEN,URINE NEGATIVE (CUTOFF=25); THC SCREEN,URINE 20 NG/ML NEGATIVE (CUTOFF=50)
[2023-05-21 11:38] LABS: CORONAVIRUS COVID-19 NAA NEGATIVE (NEGATIVE); INFLUENZA A NAA NEGATIVE (NEGATIVE); INFLUENZA B NAA NEGATIVE (NEGATIVE)
[2023-05-21 11:40] LABS: BASOPHILS ABSOLUTE AUTO 0.05 K/uL (0.00-0.20); BASOPHILS PERCENT AUTO 0.8 % (0.0-1.0); EOSINOPHILS ABSOLUTE AUTO 0.08 K/uL (0.00-0.45); EOSINOPHILS PERCENT AUTO 1.3 % (0.0-6.0); HEMATOCRIT 36.4 % (37.0-47.0); HEMOGLOBIN 12.4 g/dL (12.0-16.0); IMMATURE GRAN ABSOLUTE AUTO 0.01 K/uL (0.00-0.05); IMMATURE GRAN PERCENT AUTO 0.2 % (0.0-0.4); LYMPHOCYTES ABSOLUTE AUTO 2.59 K/uL (1.00-4.80); LYMPHOCYTES PERCENT AUTO 41.2 % (24.0-44.0); MEAN CORPUSCULAR HEMOGLOBIN 27.4 pg (28.0-32.0); MEAN CORPUSCULAR HGB CONC 34.1 g/dL (32.0-36.0); MEAN CORPUSCULAR VOLUME 80.5 fL (83.0-99.0); MONOCYTES ABSOLUTE AUTO 0.35 K/uL (0.00-0.80); MONOCYTES PERCENT AUTO 5.6 % (0.0-8.0); NEUTROPHILS PERCENT AUTO 50.9 % (41.0-71.0); PLATELET COUNT,PLT 271 K/uL (150-400); RED BLOOD CELL COUNT 4.52 M/uL (4.10-5.30); WHITE BLOOD CELL COUNT,WBC 6.28 K/uL (3.9-11.3)
[2023-05-21 12:09] LABS: A/G RATIO 0.7 (0.9-1.6); ACETAMINOPHEN <2.0 ug/mL; ALANINE AMINOTRANSFERASE,ALT 17 IU/L (14-63); ALBUMIN 3.5 g/dL (3.4-5.0); ALKALINE PHOSPHATASE 108 U/L (46-116); ASPARTATE AMNIOTRANSFERASE,AST 11 IU/L (15-37); BILIRUBIN TOTAL 0.4 mg/dL (0.2-1.0); BLOOD UREA NITROGEN,BUN 11 mg/dL (7.0-18.0); CARBON DIOXIDE,CO2 28.6 mmol/L (21.0-32.0); CHLORIDE,CL 103 mmol/L (98-107); EST CRCL DRUG DOSING (CG) 61.51 mL/min; GLUCOSE RANDOM 95 mg/dL (74-106); MAGNESIUM 1.8 mg/dL (1.8-2.4); POTASSIUM,K 3.7 mmol/L (3.5-5.1); PROTEIN TOTAL,TP 8.2 g/dL (6.4-8.2); SALICYLATE 0.6 mg/dL (0.0-20.0); SODIUM,NA 140 mmol/L (136-145); TSH ULTRASENSITIVE 0.83 uIU/mL (0.36-3.74)
[2023-05-21 12:15] LABS: ESTIMATED GFR 77 mL/min (>60)
[2023-05-21 12:16] LABS: ETHANOL BLOOD MEDICAL < 3.0 mg/dL
== END 2023-05-21 14:11 ==
LOC: MW.ED 10:31
DX: F32.A Depression, unspecified (principal); R45.851 Suicidal ideations; Z79.899 Other long term (current) drug therapy; Z75.8 Other problems related to medical facilities and other health care
CPT/HCPCS: 0240U; 36415; 80053; 80143; 80179; 80305; 80307; 81003; 81025; 83735; 84443; 85025; 99285

== ENCOUNTER 2023-07-01 02:17 | Emergency (ER) | payer BC, OTHER ==
[2023-07-01 02:44] LABS: HEMATOCRIT 33.8 % (37.0-47.0); HEMOGLOBIN 11.5 g/dL (12.0-16.0); MEAN CORPUSCULAR HEMOGLOBIN 28.3 pg (28.0-32.0); MEAN CORPUSCULAR VOLUME 83.3 fL (83.0-99.0); MEAN PLATELET VOLUME 10.9 fL (9.4-12.3); PLATELET COUNT,PLT 269 K/uL (150-400); RED BLOOD CELL COUNT 4.06 M/uL (4.10-5.30); WHITE BLOOD CELL COUNT,WBC 8.25 K/uL (3.9-11.3)
[2023-07-01] MEDS: Sodium Chloride 0.9% 1,000 ML IV ONE (02:46)
[2023-07-01 03:04] LABS: BASOPHILS ABSOLUTE MAN 0.08 K/uL (0.00-0.20); BASOPHILS PERCENT MAN 1 % (0-1); EOSINOPHILS ABSOLUTE MAN 0.25 K/uL (0.00-0.45); EOSINOPHILS PERCENT MAN 3 % (0-6); LYMPHOCYTES ABSOLUTE MAN 4.13 K/uL (1.00-4.80); LYMPHOCYTES PERCENT MAN 50 % (24-44); MONOCYTES ABSOLUTE MAN 0.74 K/uL (0.00-0.80); MONOCYTES PERCENT MAN 9 % (0-8); SEG NEUTROPHILS ABSOLUTE MAN 3.05 K/uL (1.80-7.70); SEG NEUTROPHILS PERCENT MAN 37 % (41-71)
[2023-07-01 03:11] LABS: A/G RATIO 0.7 (0.9-1.6); ALBUMIN 3.1 g/dL (3.4-5.0); BILIRUBIN TOTAL 0.3 mg/dL (0.2-1.0); CALCIUM 8.7 mg/dL (8.5-10.1); CARBON DIOXIDE,CO2 31.2 mmol/L (21.0-32.0); EST CRCL DRUG DOSING (CG) 61.51 mL/min; POTASSIUM,K 3.6 mmol/L (3.5-5.1); PROTEIN TOTAL,TP 7.7 g/dL (6.4-8.2)
[2023-07-01] MEDS: Magnesium Citrate Solution 296 ML Bottle PO ONE (03:57)
== END 2023-07-01 03:58 | disposition home or self-care (01) ==
LOC: MW.ED 02:17
DX: K59.00 Constipation, unspecified (principal); E78.00 Pure hypercholesterolemia, unspecified; Z79.899 Other long term (current) drug therapy; Z75.8 Other problems related to medical facilities and other health care
CPT/HCPCS: 36415; 74018; 80053; 84703; 85025; 96360; 99284; A9270; J7030; 99283

== ENCOUNTER 2024-06-07 15:45 | Emergency (ER) | payer BC, OTHER ==
[2024-06-07 16:38] LABS: BASOPHILS ABSOLUTE AUTO 0.06 K/uL (0.00-0.20); BASOPHILS PERCENT AUTO 0.7 % (0.0-1.0); EOSINOPHILS ABSOLUTE AUTO 0.17 K/uL (0.00-0.45); EOSINOPHILS PERCENT AUTO 1.9 % (0.0-6.0); HEMATOCRIT 35.8 % (37.0-47.0); HEMOGLOBIN 12.1 g/dL (12.0-16.0); IMMATURE GRAN ABSOLUTE AUTO 0.01 K/uL (0.00-0.05); IMMATURE GRAN PERCENT AUTO 0.1 % (0.0-0.4); LYMPHOCYTES ABSOLUTE AUTO 2.68 K/uL (1.00-4.80); LYMPHOCYTES PERCENT AUTO 30.2 % (24.0-44.0); MEAN CORPUSCULAR HGB CONC 33.8 g/dL (32.0-36.0); MEAN CORPUSCULAR VOLUME 82.9 fL (83.0-99.0); MEAN PLATELET VOLUME 11.7 fL (9.4-12.3); MONOCYTES ABSOLUTE AUTO 0.54 K/uL (0.00-0.80); MONOCYTES PERCENT AUTO 6.1 % (0.0-8.0); NEUTROPHILS ABSOLUTE AUTO 5.41 K/uL (1.80-7.70); PLATELET COUNT,PLT 257 K/uL (150-400); RED BLOOD CELL COUNT 4.32 M/uL (4.10-5.30); WHITE BLOOD CELL COUNT,WBC 8.87 K/uL (3.9-11.3)
[2024-06-07] MEDS: Acetaminophen 500 MG Tab PO ONE (17:16)
[2024-06-07 17:18] LABS: MAGNESIUM 2.2 mg/dL (1.8-2.4)
[2024-06-07 17:21] LABS: A/G RATIO 0.8 (0.9-1.6); ALBUMIN 3.4 g/dL (3.4-5.0); BILIRUBIN TOTAL 0.3 mg/dL (0.2-1.0); CALCIUM 8.9 mg/dL (8.5-10.1); CARBON DIOXIDE,CO2 26.6 mmol/L (21.0-32.0); EST CRCL DRUG DOSING (CG) 60.95 mL/min; POTASSIUM,K 3.4 mmol/L (3.5-5.1); PROTEIN TOTAL,TP 7.6 g/dL (6.4-8.2)
[2024-06-07 17:26] LABS: LACTIC ACID 1.6 mmol/L (0.4-2.0)
[2024-06-07 17:40] LABS: APPEARANCE,URINE CLEAR; BILIRUBIN,URINE NEGATIVE (NEGATIVE); COLOR,URINE YELLOW; GLUCOSE,URINE NEGATIVE (NEGATIVE); KETONES,URINE NEGATIVE (NEGATIVE); LEUKOCYTE ESTERASE,URINE NEGATIVE (NEGATIVE); NITRITE,URINE NEGATIVE (NEGATIVE); OCCULT BLOOD,URINE NEGATIVE (NEGATIVE); PROTEIN,URINE NEGATIVE (NEGATIVE); UROBILINOGEN,URINE 0.2 EU/dL (<2.0)
[2024-06-07 17:49] LABS: AMPHETAMINES SCREEN, URINE NEGATIVE (CUTOFF=500); BARBITURATE SCREEN,URINE NEGATIVE (CUTOFF=200); BENZODIAZEPINES SCREEN,URINE NEGATIVE (CUTOFF=150); BUPRENORPHINE SCREEN,URINE NEGATIVE (CUTOFF=10); METHADONE SCREEN, URINE NEGATIVE (CUTOFF=200); METHAMPHETAMINES SCREEN, URINE NEGATIVE (CUTOFF=500); OXYCODONE SCREEN,URINE NEGATIVE (CUT0FF=100); PCP SCREEN,URINE NEGATIVE (CUTOFF=25); THC SCREEN,URINE 20 NG/ML NEGATIVE (CUTOFF=50)
== END 2024-06-07 18:00 | disposition home or self-care (01) ==
LOC: MW.ED 15:45
DX: R56.9 Unspecified convulsions (principal); E78.00 Pure hypercholesterolemia, unspecified; Z79.899 Other long term (current) drug therapy
CPT/HCPCS: 36415; 70450; 71045; 80053; 80178; 80305; 80307; 81003; 81025; 83605; 83735; 85025; 99285; A9270; 99283